=== PATIENT | female | born 1955 | race Caucasian/White ===

== ENCOUNTER 2023-12-12 15:12 | Inpatient (IN) | payer OTHER, SELFPAY ==
[2023-12-12] VITALS (10 sets, daily range): BP systolic 105–122; BP diastolic 55–90; BMI 27.5
[2023-12-12] MEDS: TORADOL 30 MG IV (11:31)
[2023-12-12] MEDS: ZOFRAN 4 MG IV (11:32)
[2023-12-12] MEDS: NSS 1000 IV (11:32)
[2023-12-12] MEDS: DILAUDID 0.5 MG IV ×4 (11:32→20:03)
[2023-12-12 11:48] LABS: % Basophils 0.2 % (0-2); % Eosinophils 0.2 % (0-6); % Immature Granulocytes 0.7 % (0-0.5); % Lymphocytes 3.6 % (20.5-51.1); % Monocytes 7.5 % (1.7-9.3); % Neutrophils 87.8 % (42.2-75.2); Absolute Immature Granulocytes 0.1 10^3/uL (0-0.05); Absolute Lymphocytes 0.5 10^3/uL (1.2-3.4); Absolute Neutrophils 11.6 10^3/uL (1.4-6.5); Hematocrit 33.9 % (37.0-47.0); Hemoglobin 11.6 g/dL (12.0-16.0); Mean Corp Hgb Conc. 34.2 g/dL (33.0-37.0); Mean Corpuscular Hgb 28.4 pg (27.0-31.0); Mean Corpuscular Volume 82.9 fL (81.0-99.0); Nucleated Red Blood Cells % 0 %; Platelet Count 239 10^3/uL (130-400); Red Blood Cell Count 4.09 10^6/uL (4.20-5.40); Red Cell Dist. Width 13.9 % (11.5-14.5); White Blood Cell Count 13.1 10^3/uL (4.8-10.8)
--- NOTE | 2023-12-12 11:50 | ED.GENMED ---
History of Present Illness
<Navid Rausch PA-C - Last Filed: 12/12/23 14:35>
General
Chief Complaint: Abdominal Pain
Source: patient
Time Seen by Provider: 12/12/23 11:01
History of Present Illness
History of Present Illness:
68-year-old female with past medical history of hypertension, gastric ulcer and hypothyroidism presenting to the emergency department for evaluation of lower abdominal pain that began last night in the left lower quadrant and overnight started to
move across her abdomen now diffuse lower abdomen accompanied with decreased p.o. intake today. Patient denied any nausea while in triage but is stating to me she has mild nausea but is otherwise denying any vomiting or diarrhea or urinary
symptoms. Denies any history of similar pain. Patient states she did not check her temperature at home but felt febrile. Surgical history was noncontributory. Patient did have a colonoscopy done earlier this year which showed 2 polyps and
scattered diverticulum. Patient otherwise has no other concerns.
Past History
<Navid Rausch PA-C - Last Filed: 12/12/23 14:35>
Past History
ED Past Medical History: HTN, Hypothyroidism, Other (Gastric ulcer) and Other (Patient has a history of pulmonary embolism years ago and she is on control)
ED Past Surgical History: None
Patient has exhibited threatening behavior?: No
PSI?: No
Social History
Tobacco: Non-smoker
Alcohol: None
Drug: None
Personal:
Living: with family
Employment: Employed
Review of Systems
<Navid Rausch PA-C - Last Filed: 12/12/23 14:35>
Review of Systems
All Other Systems: ROS reviewed and negative except as documented in HPI and ROS
Phy Exam
<Navid Rausch PA-C - Last Filed: 12/12/23 14:35>
Physical Exam
Physical Exam:
GENERAL: Alert , patient appears quite uncomfortable
EYE: clear conjunctiva b/l
HEAD: NCAT
ENT: o/p clr, mmm.
CARDIAC: Borderline tachycardic rate and rhythm, no murmur
LUNGS: Clear breath sounds bilaterally, no acute respiratory distress, no wheezes/rales/rhonchi
ABDOMEN: Firm and diffusely tender with rebound tenderness, pain is most pronounced within the left lower quadrant, no CVA tenderness
NEUROLOGICAL: Alert and oriented
SKIN: Warm and dry, skin intact.
MUSCULOSKELETAL: well perfused.
PSYCH: Normal and appropriate interaction.
Scores
<Navid Rausch PA-C - Last Filed: 12/12/23 14:35>
Heart Failure Risk
Heart Failure Risk Score: Not Applicable
Heart Score for Chest Pain Patients
STEMI patient?: Not applicable
Withdrawal Assessment of Alcohol
Withdrawal Assessment Completed?: Not applicable
Course
<Navid Rausch PA-C - Last Filed: 12/12/23 14:35>
Orders/Labs/Results
Orders:
Orders
12/12/23 11:21
0.9% Sodium Chloride 1000 ml [Nss] 1,000 ml IV BOLUS
HYDROmorphone [Dilaudid] 0.5 mg IV NOW STA
Ketorolac [Toradol] 30 mg IV NOW STA
Ondansetron Injectable [Zofran] 4 mg IV NOW STA
12/12/23 11:22
CT Abd/pelvis W Iv Cont Urgent
Comment:
Reason For Exam: diffuse lower abd pain, worse LLQ
12/12/23 11:34
Complete Blood Count/With Diff Urgent
Comprehensive Metabolic Panel Urgent
Lactic Acid Q4H
Comment: CANCEL 2nd LACTIC ACID IF 1st LACTIC ACID IS LESS THAN 2
Lipase Urgent
12/12/23 12:02
HYDROmorphone [Dilaudid] 0.5 mg .ROUTE .STK-MED ONE
HYDROmorphone [Dilaudid] 0.5 mg IV NOW STA
12/12/23 14:07
Urinalysis Reflex To Culture Urgent
Date Specimen was Collected: 12/12/23
Time Specimen was Collected: 14:06
Urine Microscopic Reflex Cult Urgent
Urine Culture Urgent
IRA Source: U
Specimen Description:
Obtained by: Random
Date Specimen was Collected: 12/12/23
Time Specimen was Collected: 14:06
12/12/23 14:32
HYDROmorphone [Dilaudid] 0.5 mg IV NOW STA
Piperacillin/Tazo 3.375 Gram [Zosyn] 3.375 gram in 50 ml IV NOW
Abnormal Lab Results
12/12/23 12/12/23
11:34 14:07
WBC 13.1 H 10^3/uL
(4.8-10.8)
RBC 4.09 L 10^6/uL
(4.20-5.40)
Hgb 11.6 L g/dL
(12.0-16.0)
Hct 33.9 L %
(37.0-47.0)
Abs Immat Gran (auto) 0.1 H 10^3/uL
(0-0.05)
Absolute Neuts (auto) 11.6 H 10^3/uL
(1.4-6.5)
Absolute Lymphs (auto) 0.5 L 10^3/uL
(1.2-3.4)
Absolute Monos (auto) 1.0 H 10^3/uL
(0.1-0.6)
Immature Gran % 0.7 H %
(0-0.5)
Neutrophils % 87.8 H %
(42.2-75.2)
Lymphocytes % 3.6 L %
(20.5-51.1)
BUN 20 H mg/dl
(7-17)
Glucose 114 H mg/dl
(70-99)
AST 37 H U/L
(14-36)
Leukocyte Esterase Rfl 2+ A
(Negative)
12/12/23 11:34
12/12/23 11:34
Vital Signs
Initial and Last Documented VS:
Initial Vital Signs
Temp Pulse Resp BP Pulse Ox
100.8 F H 110 18 122/90 99
12/12/23 10:45 12/12/23 10:45 12/12/23 10:45 12/12/23 10:45 12/12/23 10:45
Last Documented Vital Signs
Temp Pulse Resp BP Pulse Ox
99.8 F 84 18 117/64 97
12/12/23 13:34 12/12/23 13:34 12/12/23 13:34 12/12/23 13:00 12/12/23 13:45
<Kandi Mallory MD - Last Filed: 12/12/23 12:29>
Orders/Labs/Results
Orders:
Orders
12/12/23 11:21
0.9% Sodium Chloride 1000 ml [Nss] 1,000 ml IV BOLUS
HYDROmorphone [Dilaudid] 0.5 mg IV NOW STA
Ketorolac [Toradol] 30 mg IV NOW STA
Ondansetron Injectable [Zofran] 4 mg IV NOW STA
12/12/23 11:22
CT Abd/pelvis W Iv Cont Urgent
Comment:
Reason For Exam: diffuse lower abd pain, worse LLQ
12/12/23 11:34
Complete Blood Count/With Diff Urgent
Comprehensive Metabolic Panel Urgent
Lactic Acid Q4H
Comment: CANCEL 2nd LACTIC ACID IF 1st LACTIC ACID IS LESS THAN 2
Lipase Urgent
12/12/23 12:02
HYDROmorphone [Dilaudid] 0.5 mg .ROUTE .STK-MED ONE
HYDROmorphone [Dilaudid] 0.5 mg IV NOW STA
12/12/23 14:07
Urinalysis Reflex To Culture Urgent
Date Specimen was Collected: 12/12/23
Time Specimen was Collected: 14:06
Urine Microscopic Reflex Cult Urgent
Urine Culture Urgent
IRA Source: U
Specimen Description:
Obtained by: Random
Date Specimen was Collected: 12/12/23
Time Specimen was Collected: 14:06
12/12/23 14:32
HYDROmorphone [Dilaudid] 0.5 mg IV NOW STA
Piperacillin/Tazo 3.375 Gram [Zosyn] 3.375 gram in 50 ml IV NOW
Abnormal Lab Results
12/12/23 12/12/23
11:34 14:07
WBC 13.1 H 10^3/uL
(4.8-10.8)
RBC 4.09 L 10^6/uL
(4.20-5.40)
Hgb 11.6 L g/dL
(12.0-16.0)
Hct 33.9 L %
(37.0-47.0)
Abs Immat Gran (auto) 0.1 H 10^3/uL
(0-0.05)
Absolute Neuts (auto) 11.6 H 10^3/uL
(1.4-6.5)
Absolute Lymphs (auto) 0.5 L 10^3/uL
(1.2-3.4)
Absolute Monos (auto) 1.0 H 10^3/uL
(0.1-0.6)
Immature Gran % 0.7 H %
(0-0.5)
Neutrophils % 87.8 H %
(42.2-75.2)
Lymphocytes % 3.6 L %
(20.5-51.1)
BUN 20 H mg/dl
(7-17)
Glucose 114 H mg/dl
(70-99)
AST 37 H U/L
(14-36)
Leukocyte Esterase Rfl 2+ A
(Negative)
12/12/23 11:34
12/12/23 11:34
Vital Signs
Initial and Last Documented VS:
Initial Vital Signs
Temp Pulse Resp BP Pulse Ox
100.8 F H 110 18 122/90 99
12/12/23 10:45 12/12/23 10:45 12/12/23 10:45 12/12/23 10:45 12/12/23 10:45
Last Documented Vital Signs
Temp Pulse Resp BP Pulse Ox
99.8 F 84 18 117/64 97
12/12/23 13:34 12/12/23 13:34 12/12/23 13:34 12/12/23 13:00 12/12/23 13:45
<Navid Rausch PA-C - Last Filed: 12/12/23 14:35>
MDM/Problems Addressed
Differential Diagnosis Includes:
Diverticulitis/colitis, pancreatitis, appendicitis, I do not have concern for cholecystitis, urinary tract infection/renal/ureteral,
MDM/Problems Addressed:
68-year-old female presenting to the emergency department for evaluation of abdominal pain x 1 day. Patient started mildly in the left lower quadrant last night, overnight became more severe and across the entirety of the lower abdomen but pain is
still mainly pronounced within the left lower quadrant. Patient felt febrile at home but did not take her temperature nor anything for the fever. She is febrile here to 100.8 and tachycardic. Blood work including lactic acid ordered. Pain
control with Toradol and Dilaudid, Zofran for nausea. CT scan ordered. Reassessment following.
<Navid Rausch PA-C - Last Filed: 12/12/23 14:35>
*Radiology
Radiology exam reviewed: radiology read reviewed
*Pulse Oximetry
Patient hypoxic: no
*Critical Care Note
Total Time (30-74mins, 75-104mins- exclusive of procedures): Not Applicable
Data Reviewed
Review of Other/Old Records Reveals: Records and Testing
Source: patient
<Navid Rausch PA-C - Last Filed: 12/12/23 14:35>
Patient Management
Escalation/DeEscalation of care consider admission/obs:
Patient CT finding is noted for a large amount of feces throughout the colon suggesting possible constipation. I am less suspicious of this constipation as the cause of patient's presenting symptoms given she states she had a large bowel movement
this morning as well as this would not cause her fever and an elevated white blood cell count. Cholelithiasis was also noted however patient does not have pain in the right upper quadrant nor elevated liver function testing. Patient does have
diverticuli but CT is read as with acute evidence for diverticulitis but based off of patient's presentation, left lower quadrant abdominal pain, rebound tenderness I am most suspicious that diverticulitis is the most likely diagnosis. After
extensive conversation and answering questions with patient and her they ultimately decided that they would prefer being admitted over being discharged home which I think is reasonable given her fever combined with leukocytosis and continued
pain. Zosyn and a third dose of Dilaudid ordered for pain control. Hospitalist team is aware and accepts for continued evaluation and treat.
ED Attending Note
<Navid Rausch PA-C - Last Filed: 12/12/23 14:35>
-
Portions of this chart may have been created with voice recognition software.� Occasional wrong word or��sound alike� substitutions may have occurred due to the inherent limitations of voice recognition software.
<Kandi Mallory MD - Last Filed: 12/12/23 12:29>
ED Attending Note
Patient seen and examined by attending physician: Yes
ED Attending Note:
Patient is nontoxic and hemodynamically stable but has a fever and has point tenderness of left lower abdomen. I am suspicious for acute diverticulitis. Patient is awaiting CT. Heart sounds regular. lungs are clear.
Discharge Plan
Departure
Patient Disposition: Admit
Date of Disposition: 12/12/23
Time of Disposition: 14:31
Presentation/result/management discussed w/ accepting MD/DO: Hospitalist
Discharge Problem:
Diverticulitis
Prescriptions:
No Action
ascorbic acid (vitamin C) [Vitamin C] 500 MG tablet
500 mg PO DAILY
aspirin 325 MG tablet,delayed release (DR/EC)
325 mg PO DAILY
chromium 1 TAB tablet
1 tab PO DAILY
sertraline 50 MG tablet
50 mg PO HS
docosahexaenoic acid-epa 1 CAP capsule
1 cap PO DAILY
biotin 1 MG tablet
1 mg PO DAILY
sfrmmzff-yzrw-hmekct-hyalur ac 1 CAP capsule
1 cap PO DAILY
coenzyme P80-mvrpocs E 1 CAP capsule
1 cap PO DAILY
calcium carbonate-vit D3-min 1 EACH tablet,chewable
1 ea PO DAILY
multivitamin with folic acid [Tab-A-Jade] 1 TABLET tablet
1 tab PO DAILY
SELENIUM
1 tab PO DAILY
Vitamin D
1 tab PO DAILY
lidocaine 5 % adhesive patch,medicated
1 patch topical DAILY Qty: 10 0RF
Rx Instructions:
ON FOR 12 HOURS, OFF FOR 12 HOURS
lysine [L-Lysine] 1,000 MG tablet
1,000 mg PO DAILY
metoprolol succinate 25 mg tablet extended release 24 hr
25 mg PO DAILY 30 Days Qty: 30 0RF
meclizine 25 mg tablet
25 mg PO BID PRN (Reason: dizziness) 7 Days Qty: 14 0RF
omeprazole 40 mg capsule,delayed release(DR/EC)
40 mg PO DAILY Qty: 20 0RF
Referrals:
Evaristo Montez MD [Family Provider] -
Interventions
Interventions:
*Risk Screen - Suicide Last Done: 12/12/23 11:41
*General Assessment Last Done: 12/12/23 10:48
*Neglect/Abuse Screening Last Done: 12/12/23 11:41
ED- Fall Risk Assessment Last Done: 12/12/23 11:40
*ED COVID-19 Vaccine History Last Done: 12/12/23 10:48
DH-Jqyseu-Jaxjgpwzbr Assessment Last Done: 12/12/23 11:37
Discharge Date and Time
Print Language: MACANESE
[2023-12-12 12:06] LABS: ALT (SGPT) 33 U/L (0-35); AST (SGOT) 37 U/L (14-36); Albumin 4.1 g/dl (3.5-5.0); Alkaline Phosphatase 76 U/L (38-126); Blood Urea Nitrogen 20 mg/dl (7-17); Calcium 9.5 mg/dl (8.4-10.2); Carbon Dioxide 22 mmol/L (22-30); Chloride 104 mmol/L (98-107); Estimated Creatinine Clearance 62 ml/min; Glucose 114 mg/dl (70-99); Lipase 79 U/L (23-300); Potassium 4.1 mmol/L (3.5-5.1); Sodium 136 mmol/L (135-145); Total Bilirubin 0.6 mg/dl (0.2-1.3); Total Protein 6.8 g/dl (6.3-8.2); eGFR > 60.00
[2023-12-12 12:09] LABS: Lactic Acid 1.9 mmol/L (0.7-2.0)
[2023-12-12 14:21] LABS: Urine Albumin Negative (Neg - Trace); Urine Bilirubin Negative (Negative); Urine Character Clear (Clear); Urine Color Straw; Urine Glucose Negative (Negative); Urine Ketone Negative (Negative); Urine Leukocyte 2+ (Negative); Urine Nitrite Negative (Negative); Urine Occult Blood Negative (Negative); Urine Specific Gravity 1.005 (<1.030); Urine Urobilinogen Negative (Neg - 1+)
[2023-12-12 14:35] LABS: Urine Red Blood Cell 0-2 /HPF (0-2)
--- NOTE | 2023-12-12 14:35 | HPS.HSE ---
Family Physician
-
Family Physician: Evaristo Montez
Chief Complaint
-
Abdominal pain
History of Present Illness
68 y/o F with PMHx:
Essential hypertension
Peptic ulcer disease
Hypothyroidism
who p/w CC abd pain. The middle of the night the patient began having sharp left lower quadrant abdominal pain that was radiating to the right side. She had no nausea or vomiting. She had a normal bowel movement yesterday evening without melena
or hematochezia. She denies any fevers at home but also did not take her temperature. Denies chest pain, shortness of breath,, headache, neck stiffness, rash, dysuria, focal neurological deficit.
Medical History
Past Medical History
Past Medical History: Reports Other (as per HPI)
Past Surgical History: Reports Other (N/A)
Social History
Tobacco: Non-smoker
Alcohol: None
Drug: None
Family History
Family History: Not pertinent
Allergies / Home Medications
Allergies reflects when Allergies were last updated in [facility].
Home Medications with original date entered in [facility]
Allergy/Medication List:
Allergies
Allergy/AdvReac Type Severity Reaction Status Date / Time
erythromycin base Allergy burning Verified 12/12/23 10:50
stomach
latex [Latex] Allergy Rash Verified 12/12/23 10:50
Home Medications
SELENIUM 1 tab PO DAILY 07/23/10
ascorbic acid (vitamin C) 500 mg tablet (Vitamin C) 500 mg PO DAILY 07/23/10
aspirin 325 mg tablet,delayed release 325 mg PO HS 07/23/10
biotin 1 mg tablet 1 mg PO DAILY 07/23/10
docosahexaenoic acid (dha)-epa 120 mg-180 mg capsule 1 cap PO DAILY 07/23/10
multivitamin with folic acid 400 mcg tablet (Tab-A-Jade) 1 tab PO DAILY 07/23/10
sertraline 50 mg tablet 50 mg PO HS 07/23/10
omeprazole 40 mg capsule,delayed release 40 mg PO DAILY #20 caps 08/04/22
apple cider vinegar 300 mg tablet 300 mg PO DAILY 12/12/23
calcium carbonate (Calcium 600) 600 mg PO DAILY 12/12/23
coenzyme Q10 100 mg capsule (CoQ-10) 100 mg PO DAILY 12/12/23
famotidine 40 mg tablet 40 mg PO DAILY 12/12/23
garlic 200 mg tablet 200 mg PO DAILY 12/12/23
ibuprofen 200 mg tablet (Advil) 400 mg PO Q6HPRN PRN mild pain 12/12/23
inulin 2 gram chewable tablet (Fiber Gummies) 4 g PO DAILY 12/12/23
levothyroxine 25 mcg tablet 25 mcg PO HS 12/12/23
omega 1-ajn-dbq-fish oil 1,000 mg (120 mg-180 mg) capsule (Fish Oil) 1 cap PO DAILY 12/12/23
Review of Systems
-
History Source: Patient
A 12 point ROS was completed and negative except as noted: Yes
Physical Exam
Vital Signs
Vital Signs
Temp Pulse Resp BP Pulse Ox
99.8 F 84 18 117/64 97
12/12/23 13:34 12/12/23 13:34 12/12/23 13:34 12/12/23 13:00 12/12/23 13:45
Physical Exam
General: Other (.)
Laboratory Results
-
12/12/23 11:34
12/12/23 11:34
Laboratory Results
Lactic Acid Cancelled 12/12/23 15:30
Total Bilirubin 0.6 mg/dl (0.2-1.3) 12/12/23 11:34
AST 37 U/L (14-36) H 12/12/23 11:34
ALT 33 U/L (0-35) 12/12/23 11:34
Alkaline Phosphatase 76 U/L (38-126) 12/12/23 11:34
Lipase 79 U/L (23-300) 12/12/23 11:34
Impression/Plan
-
Gen: NAD, AAOx3.
Eyes: EOMI, PERRLA, no scleral icterus.
Neck: supple.
CV: RRR, +S1/S2, no m/r/g.
Resp: CTAB, no rales, wheezes, or rhonchi.
Abd: +BS, soft, ND, tenderness to palpation in the left lower quadrant and right lower quadrant with the weight of the stethoscope alone
Skin: No rashes.
Neuro: CN 2-12 intact, non-focal.
Psych: Normal mood and affect.
CT A/P: Large amount of feces throughout the colon suggesting possible constipation. Small amount of free fluid in the pelvis. Cholelithiasis. Evaluation for bowel pathology is limited by the lack of enteric contrast
Diverticuli are present in the colon with no CT evidence of diverticulitis. There are no areas of pericolonic inflammatory stranding. If there is clinical suspicion for bowel pathology, the study could be repeated with enteric contrast and 4 hour
delay.
Fever and abd pain:
-CT A/P above and without evidence of diverticulitis but presentation consistent with acute diverticulitis
-check CT A/P with PO contrast
-Sepsis, POA, due to likely diverticulitis
-recheck CT A/P with PO contrast
-cont IVFs
-cont with Toradol/Dilaudid for pain control
-cont Zosyn
Other problems:
Essential hypertension: cont BB
Peptic ulcer disease
Hypothyroidism
FULL/Lovenox
[2023-12-12] MEDS: ZOSYN 50 IV (14:48)
[2023-12-12] MEDS: OMNIPAQUE 50 ML PO (17:43)
[2023-12-12] MEDS: PROTONIX 40 MG PO (17:49)
[2023-12-12] MEDS: D5LR 1000 IV (17:49)
[2023-12-12] MEDS: PEPCID 40 MG PO (17:49)
[2023-12-12] MEDS: LOVENOX 40 MG SC (17:50)
[2023-12-12] MEDS: TORADOL 10 MG IV (17:51)
--- NOTE | 2023-12-12 18:26 | PTCARENOTE ---
Received patient from ED via stretcher. Ambulated to bed. Assessed and oriented to room. Call saldana in close reach.
[2023-12-12] MEDS: ASPIRIN ENTERIC COATED 325 MG PO (20:54)
[2023-12-12] MEDS: SYNTHROID 25 MCG PO (20:54)
[2023-12-12] MEDS: ZOLOFT 50 MG PO (20:55)
[2023-12-13] VITALS (11 sets, daily range): BP systolic 20–136; BP diastolic 55–71; PULSE 67; O2SAT 96
[2023-12-13] MEDS: ZOSYN 50 IV ×2 (00:07→06:02)
[2023-12-13] MEDS: DILAUDID 0.5 MG IV ×3 (00:23→13:27)
--- NOTE | 2023-12-13 01:04 | CON.CRS ---
Consultation
-
Reason for Consultation: concern for perforated colon
Medical History
-
Chief Complaint: abdominal pain
History of Present Illness:
15 to the hospital for new onset severe abdominal pain. Was found to have leukocytosis with a white blood cell count of 13.1 as well as a low-grade fever a little bit above 100 �F. Denies nausea or vomiting. Describes the pain as 8 out of 10.
Has been moving her bowels and her last BM was within the last 24 hours. Of note her normal bowel function is every 2 to 3 days. She does not describe her self is constipated. She does not take narcotics. She did undergo a colonoscopy by me
earlier in the year which confirmed diverticular disease. She has a history of colon polyps. She also interestingly has a history of peptic ulcer disease which has been managed medically. Her most recent EGD in August 2022 showed some gastritis
and a healed ulcer. Patient also has known gallstones. She did undergo 2 CT scans today 1 with out oral contrast on the second with. The initial 1 was read as unremarkable however in retrospect appears to have shown some free air. The second was
read as free air consistent with perforated viscus 'the exact location of perforation is difficult to discern. Given that the free air is located mostly in the upper abdomen, perforated peptic ulcer would be a primary consideration. Perforated
diverticulitis is an alternative consideration, but no clear evidence for acute diverticulitis on this exam '. Initially Dr. Rod Hernandez of general surgery was asked to evaluate the patient. On his own assessment of the CTs he concluded that
this is more likely to be a colonic issue and asked me to see the patient instead. On my own review of the CAT scan, there is certainly a decent amount of stool in the colon. There are flecks of free air mostly in the upper abdomen. There is no
obvious inflammation in the colon or abscess although I do wonder if the proximal sigmoid has a bit of fat stranding.
On discussion with the patient she has never had an attack of diverticulitis in the past. She has never had pain like this in her life. She denies any bleeding. She is anxious about her circumstance.
Past Medical History
Past Medical History: GERD (h/o PUD), HTN, Hypothyroidism and Other
Social History
Tobacco: Non-Smoker
Alcohol: None
Personal:
Living: With Family
Family History
Family History: Reviewed & Not Pertinent
Allergies / Home Medications
Allergy/AdvReac Type Severity Reaction Status Date / Time
erythromycin base Allergy burning Verified 12/12/23 10:50
stomach
latex [Latex] Allergy Rash Verified 12/12/23 10:50
�Medication �Instructions �Recorded �Confirmed �Type
SELENIUM 1 tab PO DAILY 07/23/10 12/12/23 History
ascorbic acid (vitamin C) 500 mg 500 mg PO DAILY 07/23/10 12/12/23 History
tablet (Vitamin C)
aspirin 325 mg tablet,delayed 325 mg PO HS 07/23/10 12/12/23 History
release
biotin 1 mg tablet 1 mg PO DAILY 07/23/10 12/12/23 History
docosahexaenoic acid (dha)-epa 120 1 cap PO DAILY 07/23/10 12/12/23 History
mg-180 mg capsule
multivitamin with folic acid 400 1 tab PO DAILY 07/23/10 12/12/23 History
mcg tablet (Tab-A-Jade)
sertraline 50 mg tablet 50 mg PO HS 07/23/10 12/12/23 History
omeprazole 40 mg capsule,delayed 40 mg PO DAILY #20 caps 08/04/22 12/12/23 Rx
release
apple cider vinegar 300 mg tablet 300 mg PO DAILY 12/12/23 12/12/23 History
calcium carbonate (Calcium 600) 600 mg PO DAILY 12/12/23 12/12/23 History
coenzyme Q10 100 mg capsule 100 mg PO DAILY 12/12/23 12/12/23 History
(CoQ-10)
famotidine 40 mg tablet 40 mg PO DAILY 12/12/23 12/12/23 History
garlic 200 mg tablet 200 mg PO DAILY 12/12/23 12/12/23 History
ibuprofen 200 mg tablet (Advil) 400 mg PO Q6HPRN PRN mild pain 12/12/23 12/12/23 History
inulin 2 gram chewable tablet 4 g PO DAILY 12/12/23 12/12/23 History
(Fiber Gummies)
levothyroxine 25 mcg tablet 25 mcg PO HS 12/12/23 12/12/23 History
omega 2-rez-lnd-fish oil 1,000 mg 1 cap PO DAILY 12/12/23 12/12/23 History
(120 mg-180 mg) capsule (Fish Oil)
Review of Systems
-
A 10 point review of systems was completed, and was negative except as per HPI.
Physical Exam
Vital Signs
Temp 99.7 F 12/12/23 23:41
Pulse 78 12/12/23 23:41
Resp Rate 16 12/12/23 23:41
Blood pressure 114/67 12/12/23 23:41
SaO2 96 12/12/23 23:41
12/11/23 12/12/23 12/13/23
06:59 06:59 06:59
Actual Weight 77.167 kg
Body Mass Index (BMI) 27.5
Lab Results / Allergies
WBC 13.1 10^3/uL (4.8-10.8) H 12/12/23 11:34
Hgb 11.6 g/dL (12.0-16.0) L 12/12/23 11:34
Hct 33.9 % (37.0-47.0) L 12/12/23 11:34
Plt Count 239 10^3/uL (130-400) 12/12/23 11:34
Abs Immat Gran (auto) 0.1 10^3/uL (0-0.05) H 12/12/23 11:34
Neutrophils % 87.8 % (42.2-75.2) H 12/12/23 11:34
Allergy/AdvReac Type Severity Reaction Status Date / Time
erythromycin base Allergy burning Verified 12/12/23 10:50
stomach
latex [Latex] Allergy Rash Verified 12/12/23 10:50
Physical Exam
General: Well Developed
Respiratory: Clear
Cardiac: S1/S2
GI: Tender (especially in lower quadrants) and Other (some guarding )
Skin: Warm and Dry
Neuro: AO x 3
Psych: Other (anxious)
Data Reviewed
-
CT Scan: Image Personally Visualized and interpreted, Report Reviewed by me and Discussed with Patient
Labs: Labs Reviewed by me and Discussed with Patient
Assessment / Plan
-
58-year-old female with perforated viscus of unclear etiology. Given history of diverticulosis and lower abdominal discomfort, certainly diverticular perforation/diverticulitis is possible. Perforated peptic ulcer is also possible given her
history especially. She is quite tender on exam. I discussed duration with the patient in detail. I recommended a trip to the OR for exploratory laparotomy with possible partial bowel resection and possible stoma creation. If upper GI findings
are found such as perforated ulcer, will likely have general surgery scrub in to address. I discussed with her the risks and benefits of the operation from my perspective. Risks I discussed with her include but are not limited to bleeding,
infection, ureteral injury, bowel or solid organ injury, hernia formation, recurrence of diverticulitis (if diverticulitis is the issue), potential need for further surgery, urinary or septal dysfunction, missed source of perforation and the
possibility of a negative ex lap, and anesthetic risks. The patient understood and agreed to proceed.
--- NOTE | 2023-12-13 04:12 | W.IMMPOSTOP ---
Addendum entered and electronically signed by Evaristo Youssef MD 12/13/23 12:03:
Correction: no rectopexy was performed.
Original Note:
Surgical Immed Post Op Note
-
Primary Surgeon: Karlie Youssef MD
Assisting Surgeon: none
Pre-op Diagnosis: perforated viscus
Post-op Diagnosis: perforated sigmoid diverticulitis
Procedure Performed: 1) exploratory laparotomy 2) Nori's procedure (sigmoidectomy with rectopexy) 3) abdominal washout
Anesthesia Type: general plus TAP block
Specimen / Cultures: 1) abdominal fluid cultures 2) sigmoid colon with stitch marking perforation
Estimated Blood Loss: 50 cc
Complications: no immediate
Operative Findings: sigmoid diverticulitis with perforation and 4 quadrant mucopurulent exudate 2) colon filled with stool
#19 Warren in pelvis.
NGT in stomach (confirmed in OR).
Sanon in bladder.
Sending to med surg.
[2023-12-13] MEDS: TORADOL 15 MG IV ×4 (04:32→21:49)
[2023-12-13] MEDS: D5LR 1000 IV ×3 (04:48→20:02)
[2023-12-13 07:40] LABS: Hematocrit 33.8 % (37.0-47.0); Hemoglobin 11.3 g/dL (12.0-16.0); Mean Corp Hgb Conc. 33.4 g/dL (33.0-37.0); Mean Corpuscular Hgb 28.8 pg (27.0-31.0); Mean Corpuscular Volume 86.2 fL (81.0-99.0); Mean Platelet Volume 10.7 fL (7.4-10.4); Platelet Count 224 10^3/uL (130-400); Red Blood Cell Count 3.92 10^6/uL (4.20-5.40); Red Cell Dist. Width 14.2 % (11.5-14.5); White Blood Cell Count 10.6 10^3/uL (4.8-10.8)
[2023-12-13 08:06] LABS: Blood Urea Nitrogen 13 mg/dl (7-17); Calcium 8.5 mg/dl (8.4-10.2); Carbon Dioxide 21 mmol/L (22-30); Chloride 103 mmol/L (98-107); Estimated Creatinine Clearance 80 ml/min; Glucose 167 mg/dl (70-99); Magnesium 2.1 mg/dl (1.6-2.3); Potassium 4.3 mmol/L (3.5-5.1); Sodium 133 mmol/L (135-145); eGFR > 60.00
--- NOTE | 2023-12-13 08:27 | W.PN.HOSP.TC ---
Addendum entered and electronically signed by Jacob Hu MD 12/13/23 09:46:
I saw and evaluated the patient. I reviewed the resident�s note and agree with findings and plan as documented in the resident�s note.
Patient complains of abdominal discomfort.
Gen: NAD, AAOx3.
Eyes: EOMI, PERRLA, no scleral icterus.
Neck: supple.
CV: remains RRR, +S1/S2, no m/r/g.
Resp: remains CTAB, no rales, wheezes, or rhonchi.
Abd: hypoactive BS heard on the right side, soft, ND, NT to very light palpation, ostomy without output
Skin: No rashes.
Neuro: CN 2-12 intact, non-focal.
Psych: Normal mood and affect.
Sepsis, POA, due to perforated viscus:
-CT A/P with PO contrast (done after initial CT A/P with IV contrast): Scattered pneumoperitoneum throughout the abdomen indicating a perforated viscus. The exact location of perforation is difficult to discern. Given that the free air is mostly
located in the upper abdomen, a perforated peptic ulcer would be the primary consideration. Perforated diverticulitis is an alternative consideration, but no clear evidence for acute diverticulitis on this exam.
-taken to OR 726/24AM for exploratory laparotomy, Nori's procedure (sigmoidectomy with rectopexy), abdominal washout
-leukocytosis has resolved
-cont IV Zosyn, c/s ID
-NGT remains in place
-CRS following
-cont IVFs
-pain control with Toradol/dilaudid
Essential hypertension: BP Stable/acceptable at this time
Peptic ulcer disease: Cont IV PPI
Hypothyroidism: OK to be off synthroid for 3 days
Total time spent on today's encounter was 50 minutes which included time spent in counseling the patient/family regarding diagnosis and treatment plan as listed above, goals of care, and symptom management. Case was discussed with nursing staff,
specialists, and care coordinators/case management. All labs and imaging personally reviewed by me. Remainder the time spent in detailed review of previous records, lab data, imaging, and other medical provider documentation.
Original Note:
Today's Communication/Plan
-
Pain management
Advance diet as tolerated per surgery
Monitor for postop complications
Assessment / Plan
Assessment / Plan
Impression:
68-year-old female who presents with perforated sigmoid diverticulitis status post sigmoidectomy with rectopexy and abdominal washout
Plan:
#Sigmoid diverticulitis, with perforation
-No previous history of diverticulosis, per patient
-Patient presented with exquisite rapid onset abdominal pain and tenderness on exam
-Status post exploratory laparotomy, sigmoidectomy with rectopexy and ostomy creation as well as abdominal washout.
-She was found to have mucopurulent exudate in all 4 quadrants of the abdomen, was washed out by surgery
-Patient started on Zosyn
-ID consult pending
-Patient currently n.p.o., will allow surgery to advance diet
-Patient states pain is 8 out of 10, she has as needed Dilaudid and ketorolac IV ordered, informed patient that she can ask nurse for pain meds
-Will recheck in afternoon if pain is adequately controlled
#Sepsis
-Patient was febrile and leukocytosis on admission
-Patient currently afebrile and with normal white count on 12/13/2023
-Source perforated abdominal viscus
-Continue Zosyn
-Infectious disease consult pending
#Peptic ulcer disease
-Continue home omeprazole and famotidine
#Essential hypertension
-Continue home beta-ave
#Hypothyroidism
-Continue home levothyroxine
Anticipated Discharge: > 48 hours
Subjective/Interval History
-
Date of Service: December 13, 2023
No acute events overnight
Patient reports 8 out of 10 abdominal pain in the right lower left lower quadrant
Objective Data
-
Labs:
Laboratory Results
12/13/23
05:49
WBC 10.6
Hgb 11.3 L
Hct 33.8 L
Plt Count 224
Sodium 133 L
Potassium 4.3
Chloride 103
Carbon Dioxide 21 L
BUN 13
Creatinine 0.7
Glucose 167 H
Calcium 8.5
Vital Signs:
Vital Signs
Temp Pulse Resp BP Pulse Ox
99.1 F 82 17 123/71 98
12/13/23 07:10 12/13/23 07:10 12/13/23 07:10 12/13/23 07:10 12/13/23 07:10
I&O
12/12/23 12/13/23 12/14/23
06:59 06:59 06:59
Intake Total 430 / 430
Output Total 400 / 400
Balance 30 / 30
Review of Systems
-
History Source: Patient
Constitutional: Reports No Symptoms
Respiratory: Reports No Symptoms
Cardiac: Reports No Symptoms
Abdomen/GI: Reports Abdominal Pain (8 out of 10 right lower and left lower quadrant), Pain (8 out of 10) and Other (Guarding on exam, patient states much less intensity than previously); Denies Nausea or Vomiting
Genitourinary: Reports No Symptoms
Physical Exam
-
General: Well Nourished and Pain
Respiratory: Clear to Auscultation
Cardiac: Regular Rhythm and S1/S2
GI: Soft, Tender (Tender to light palpation right lower and left lower quadrants) and Ostomy
Musculoskeletal: No Edema
Skin: Warm and Dry
Neuro: Awake, Alert, Oriented and AO x 3
Psych: Calm and Intact Judgement/Insight
Data Reviewed
-
CT Scan: Report Reviewed by me and Discussed with Physician
Labs: Labs Reviewed by me and Discussed with Physician
[2023-12-13] MEDS: PROTONIX IV 40 MG IV (08:43)
[2023-12-13] MEDS: NSS (PRESERVATIVE FREE) 10 ML IV (08:43)
[2023-12-13] MEDS: OFIRMEV 100 IV ×3 (08:43→20:01)
[2023-12-13 08:48] LABS: Hepatitis C Antibody Negative (Negative)
--- NOTE | 2023-12-13 10:04 | W.PN.CRS1 ---
Today's Communication / Plan
-
CCM
Ok for lvx
Assessment/Plan
-
68-year-old female with PMH of PUD, gallstones, HTN, HLD who presented with 1 day of acute abdominal pain, found to have pneumoperitoneum on CT, concerning for perforated viscus, unclear etiology, but possibly colonic
POD 1 ex lap, Green's with rectopexy for perforated diverticulitis
AFVSS
WBC 10.6, Hb 11.3 from 11.6
� Continue n.p.o. with NGT and IVF; hold p.o. meds, okay for ice chips and swabs
� Pain control with Tylenol, Toradol, Dilaudid as needed
� OK for DVT ppx with lvx
�OOB, encourage IS
� Continue Zosyn
� Appreciate hospitalist
Subjective Data
Subjective Data
Date of Service: December 13, 2023
No events since surgery
Not well-controlled
Denies nausea/vomiting. Currently NPO with NGT.
-ostomy function +penn
Objective Data
-
Vital Signs
Temp Pulse Resp BP Pulse Ox
99.1 F 82 17 123/71 98
12/13/23 07:10 12/13/23 07:10 12/13/23 07:10 12/13/23 07:10 12/13/23 08:00
Intake & Output
12/12/23 12/13/23 12/14/23
06:59 06:59 06:59
Intake Total 430 / 430
Output Total 400 / 400
Balance 30 / 30
Intake:
IV fluids (Total) 350 / 350
Normosol 100 / 100
IV piggybacks 50 / 50
Amount instilled into GI Tube ( 30 / 30
Total)
[place] Sump 30 / 30
Output:
Drain Output (Total) 120 / 120
Right Lower Abdomen Sergey- 120 / 120
Curry
Gastrointestinal tube output (
Total)
[place] Sump
Urine, [place] 250 / 250
Lab Results
12/13/23 05:49
12/13/23 05:49
Physical Exam
-
General: No Acute Distress and AOx3
HEENT: Grossly Normal
Abdomen: Soft, Non Distended and Tender (Appropriately tender near incisions; ostomy pink, no function)
Skin: Warm and Dry
Wound: Dressing in Place and No Skin Erythema
--- NOTE | 2023-12-13 11:00 | WOUNDNOTE ---
[facility] RN note: Patient s/p colostomy. Appliance intact. Stoma pink and budded. Patient given colostomy supplies ([place]ett wafer # [id number], [place] seals and Garnett pouch #[id number]) and colostomy teaching folder. Patient signed [facility] secure ostomy
stater kit authorization fax. Instructed patient how to open and close pouch, cut wafer and snap on wafer. Patient stated her can be called for any ostomy teaching sessions planned. Appliance change with teaching planned Saturday or Saturday.
[2023-12-13] MEDS: UNASYN IV ×3 (11:27→23:46)
[2023-12-13] MEDS: CHLORASEPTIC/SORE THROAT SPRAY 1 SPRAY PO ×2 (13:27→16:24)
--- NOTE | 2023-12-13 13:45 | WOUNDNOTE ---
[facility] RN Note: Faxed patient signed [place] ostomy secure starter kit request to [facility].
--- NOTE | 2023-12-13 15:38 | CM ---
Initial assessment completed with patient who lives with her in a 2 story home with basement, B/B on 2nd with 1/2 bath on 1st, 2 steps to enter, no DME or in-home services. [employer] was independent and drove. No history of psychiatric
hospitalizations. Pharmacy is [facility] on [address] in [place] and PCP is Dr. Evaristo Montez. Anticipate home with no needs.
--- NOTE | 2023-12-13 15:52 | CON.ID ---
Consultation
-
Date/Time Consultation Requested: 12/13/23 08:10
Date/Time Consultation Performed: 12/13/23 15:52
Requesting Provider: Dr Tinajero
Performing Provider: Dr Mejía
Reason for Consultation: Sigmoid diverticulitis with perforation
Chief Complaint / Past History
Chief Complaint
acute abdominal pain
History of Present Illness
Ms Powers is a 68 year old female without history of diverticulitis who presented here yesterday for acute abdominal pain, started LLQ then generalized abruptly. Also Tmax 100.0 at home. She does not normally have constipation or take carcotics.
She was known to have diverticular disease on a recent colonoscopy and PUD.
Since arrival here she was initially febrile to 100.8, bp stable, wbc 13 on arrival now 10, hgb 11.6, plt 239, L shift was noted, cr 0.7, CT without contrast read as limited, diverticulosis, recommended repeat with oral contrast which was done
showing pneumoperitoneum without definite source, no clear diverticulitis, she was taken to the OR same day and underwent ex lap, hartmanns, washout, intraabdominal cultures obtained showing few wbc nad no organisms. She was on zosyn and I have
adjusted that to unasyn. ID is consulted for assistance with management.
Past History
Additional Past Medical History:
Essential hypertension
Peptic ulcer disease
Hypothyroidism
Past Surgical History: None
Allergy History:
erythromycin base Allergy (Verified 12/12/23 10:50)
burning stomach
latex [Latex] Allergy (Verified 12/12/23 10:50)
Rash
Medications Reviewed: Yes
Social History
Tobacco: Non-Smoker
Alcohol: None
Drug: None
Family History
Family History: Not Pertinent
Review of Systems
Review of Systems
General: Fever
All systems: All other systems were reviewed and were negative
Vital Signs
Temp Pulse Resp BP Pulse Ox
100.1 F 65 17 113/61 98
12/13/23 11:25 12/13/23 11:25 12/13/23 11:25 12/13/23 11:25 12/13/23 11:25
Physical Exam
Physical Exam
Constitutional: No Acute Distress
Cardiovascular: Regular Rate and S1/S2; Negative Murmur or Rub
Pulmonary: Clear and Symmetric; Negative Wheezes, Rales or Rhonchi
Gastrointestinal: Soft, Non Tender, Non Distended and Normal Bowel Sounds
Skin: Warm and Dry; Negative Rash or Jaundice
Wound: Other (stoma pink)
Lab / Diagnostic Study Results
12/13/23 05:49
12/13/23 05:49
Abs Immat Gran (auto) 0.1 10^3/uL (0-0.05) H 12/12/23 11:34
Absolute Neuts (auto) 11.6 10^3/uL (1.4-6.5) H 12/12/23 11:34
Absolute Lymphs (auto) 0.5 10^3/uL (1.2-3.4) L 12/12/23 11:34
Absolute Monos (auto) 1.0 10^3/uL (0.1-0.6) H 12/12/23 11:34
Absolute Basos (auto) 0.0 10^3/uL (0-0.2) 12/12/23 11:34
Immature Gran % 0.7 % (0-0.5) H 12/12/23 11:34
Neutrophils % 87.8 % (42.2-75.2) H 12/12/23 11:34
Lymphocytes % 3.6 % (20.5-51.1) L 12/12/23 11:34
Monocytes % 7.5 % (1.7-9.3) 12/12/23 11:34
Eosinophils % 0.2 % (0-6) 12/12/23 11:34
Basophils % 0.2 % (0-2) 12/12/23 11:34
Lactic Acid Cancelled 12/12/23 15:30
Ur Squamous Epith Cells 3-5 /LPF (Few) 12/12/23 14:07
Microbiology Results
Micro:
12/13/23 02:33 Wound Culture - Pending
Abdomen Gram Stain - Preliminary
12/12/23 14:07 Urine Culture - Final
Urine
12/13/23 02:33 Anaerobic Culture - Pending
Colon
Assessment / Plan
Perforated Diverticulitis s/p Hartmanns
- appreciate OR cultures, no organisms on the gram stain, anticipate polymicrobial growth
- start unasyn, patient not known to be colonized with ESBLs, stop zosyn - will likely plan 5-7 day course
- check qtc
- follow clinically
[2023-12-13] MEDS: DILAUDID 1 MG IV ×2 (16:52→21:49)
[2023-12-13] MEDS: LOVENOX 40 MG SC (17:00)
[2023-12-14] MEDS: DILAUDID 1 MG IV ×6 (01:55→23:16)
[2023-12-14] MEDS: OFIRMEV 100 IV (01:57)
[2023-12-14 03:14] VITALS: BP 127/70
[2023-12-14] MEDS: D5LR 1000 IV ×3 (05:16→23:16)
[2023-12-14] MEDS: UNASYN IV ×4 (05:16→23:16)
[2023-12-14] MEDS: TORADOL 15 MG IV ×4 (05:18→22:47)
[2023-12-14 07:24] LABS: Hematocrit 29.8 % (37.0-47.0); Hemoglobin 9.8 g/dL (12.0-16.0); Mean Corp Hgb Conc. 32.9 g/dL (33.0-37.0); Mean Corpuscular Hgb 28.7 pg (27.0-31.0); Mean Corpuscular Volume 87.1 fL (81.0-99.0); Mean Platelet Volume 10.6 fL (7.4-10.4); Platelet Count 220 10^3/uL (130-400); Red Blood Cell Count 3.42 10^6/uL (4.20-5.40); Red Cell Dist. Width 14.4 % (11.5-14.5); White Blood Cell Count 7.6 10^3/uL (4.8-10.8)
[2023-12-14 07:44] LABS: Blood Urea Nitrogen 9 mg/dl (7-17); Calcium 8.6 mg/dl (8.4-10.2); Carbon Dioxide 26 mmol/L (22-30); Chloride 103 mmol/L (98-107); Estimated Creatinine Clearance 70 ml/min; Glucose 95 mg/dl (70-99); Potassium 3.9 mmol/L (3.5-5.1); Sodium 135 mmol/L (135-145); eGFR > 60.00
--- NOTE | 2023-12-14 07:46 | W.PN.HOSP.TC ---
Today's Communication/Plan
-
see bold
Assessment / Plan
Assessment / Plan
Gen: NAD, AAOx3.
Eyes: EOMI, PERRLA, no scleral icterus.
Neck: supple.
CV: RRR, +S1/S2, no m/r/g.
Resp: CTAB, no rales, wheezes, or rhonchi.
Abd: +BS, soft, tenderness to light palpation, ND
Skin: No rashes.
Neuro: CN 2-12 intact, non-focal.
Psych: Normal mood and affect.
Sepsis, POA, due to perforated viscus:
-CT A/P with PO contrast (done after initial CT A/P with IV contrast): Scattered pneumoperitoneum throughout the abdomen indicating a perforated viscus. The exact location of perforation is difficult to discern. Given that the free air is mostly
located in the upper abdomen, a perforated peptic ulcer would be the primary consideration. Perforated diverticulitis is an alternative consideration, but no clear evidence for acute diverticulitis on this exam.
-taken to OR 726/24AM for exploratory laparotomy, Nori's procedure (sigmoidectomy with rectopexy), abdominal washout
-leukocytosis has resolved
-cont IV Unasyn as per ID
-NGT remains in place
-CRS following
-cont IVFs
-pain control with Toradol/dilaudid
Other problems:
Essential hypertension: BP Stable/acceptable at this time
Peptic ulcer disease: Cont IV PPI
Hypothyroidism: OK to be off synthroid for 3 days total prior to starting IV
FULL/Lovenox
Anticipated Discharge: > 48 hours
Subjective/Interval History
-
Date of Service: December 14, 2023
No new complaints.
Objective Data
-
Labs:
Laboratory Results
12/14/23
05:52
WBC 7.6
Hgb 9.8 L
Hct 29.8 L
Plt Count 220
Sodium 135
Potassium 3.9
Chloride 103
Carbon Dioxide 26
BUN 9
Creatinine 0.8
Glucose 95
Calcium 8.6
Vital Signs:
Vital Signs
Temp Pulse Resp BP Pulse Ox
99.4 F 68 16 127/70 92
12/14/23 03:14 12/14/23 03:14 12/14/23 03:14 12/14/23 03:14 12/14/23 03:14
I&O
12/13/23 12/14/23 12/15/23
06:59 06:59 06:59
Intake Total 430 / 430 90 / 90
Output Total 400 / 400 2064 / 2064
Balance -1974 /
[2023-12-14 07:59] VITALS: BP 125/74
[2023-12-14] MEDS: PROTONIX IV 40 MG IV (08:04)
[2023-12-14] MEDS: NSS (PRESERVATIVE FREE) 10 ML IV (08:05)
[2023-12-14] MEDS: CHLORASEPTIC/SORE THROAT SPRAY 1 SPRAY PO ×3 (08:07→17:22)
[2023-12-14 10:33] VITALS: BMI 27.5
--- NOTE | 2023-12-14 10:58 | W.PN.CRS1 ---
Addendum entered and electronically signed by Mariano Mulligan MD 12/14/23 13:55:
Patient seen and examined. Agree with assessment plan as documented below.
Clinically stable. Symptomatic improvement. Abdomen benign. Awaiting return of bowel function.
Original Note:
Today's Communication / Plan
-
await bowel function
continue antibiotics
d/c fili
Assessment/Plan
-
68-year-old female with PMH of PUD, gallstones, HTN, HLD who presented with 1 day of acute abdominal pain, found to have pneumoperitoneum on CT, concerning for perforated viscus, unclear etiology, but possibly colonic
POD #2 ex lap, Green's with colostomy for perforated diverticulitis
AFVSS
WBC 7.6
� Continue n.p.o. with NGT and IVF; hold p.o. meds, okay for ice chips and swabs - await bowel function
� Pain control with Tylenol, Toradol, Dilaudid as needed
� OK for DVT ppx with lvx
� OOB, encourage IS
� Continue Zosyn
� Appreciate hospitalist
- D/c fili
Subjective Data
Procedure
12/13/2023 1) exploratory laparotomy 2) Nori's procedure (sigmoidectomy with rectopexy) 3) abdominal washout
Subjective Data
Date of Service: December 14, 2023
Patient states she still has some lower abdominal pain but it is controlled. She feels much improved from her abdominal pain prior to surgery. She has no nausea or vomiting. She has no flatus in her bag yet.
Objective Data
-
Vital Signs
Temp Pulse Resp BP Pulse Ox
98.8 F 69 16 125/74 94
12/14/23 07:59 12/14/23 07:59 12/14/23 07:59 12/14/23 07:59 07/27/24 08:00
Intake & Output
12/13/23 12/14/23 12/15/23
06:59 06:59 06:59
Intake Total 430 / 430 /
Output Total 400 / 400 2064
Balance -1974
Intake:
IV fluids (Total) 350 / 350
Normosol 100 / 100
IV piggybacks 50 / 50
Amount instilled into GI Tube ( 90 / 90
Total)
[place] Sump / 90 / 90
Output:
Drain Output (Total) 120 / 120 75 / 75
Right Lower Abdomen Sergey- 120 / 120 75 / 75
Curry
Gastrointestinal tube output ( 230 / 230
Total)
[place] Sump / 230 / 230
Urine, [place] 250 / 250 1510 / 1510
Urine, Voided 250 / 250
Lab Results
12/14/23 05:52
12/14/23 05:52
Physical Exam
-
General: No Acute Distress and AOx3
Abdomen: Soft, Non Distended, Tender (pain near incisions) and Other (KERRI drain bloody serous)
[2023-12-14 11:04] VITALS: BP 122/66
[2023-12-14] MEDS: DILAUDID 0.5 MG IV (11:10)
--- NOTE | 2023-12-14 13:16 | W.PN.ID1 ---
Date of Service
Date of Service: December 14, 2023
Today's Communication
continue unasyn
Assessment / Plan
Perforated Diverticulitis s/p Hartmanns
Secondary Peritonitis
- appreciate OR cultures, no organisms on the gram stain, anticipate polymicrobial growth - in progress
- continue unasyn, patient not known to be colonized with ESBLs, stop zosyn - will likely plan 5-7 day course
- qtc 407
- follow clinically
Chief Complaint
-: Other (secondary peritonitis)
Subjective / Review of Systems
afebrile
bp stable
without leukcotyosis
cr stable
wound cultures no growth
Vital Signs / Physical Exam
Vital Signs
Vital Signs
Temp Pulse Resp BP Pulse Ox
98.6 F 63 16 122/66 93
12/14/23 11:04 12/14/23 11:04 12/14/23 11:04 12/14/23 11:04 12/14/23 11:04
Physical Exam
Constitutional: No Acute Distress
Cardiovascular: Regular Rate and S1/S2; Negative Murmur or Rub
Pulmonary: Clear and Symmetric; Negative Wheezes or Rales
Gastrointestinal: Soft, Non Tender, Non Distended and Normal Bowel Sounds
Skin: Warm and Dry; Negative Rash or Jaundice
Objective Data
Lab Data
Lab Results
12/14/23 05:52
12/14/23 05:52
Estimated Creat Clear 70 ml/min 12/14/23 05:52
Lactic Acid Cancelled 12/12/23 15:30
Total Bilirubin 0.6 mg/dl (0.2-1.3) 12/12/23 11:34
AST 37 U/L (14-36) H 12/12/23 11:34
ALT 33 U/L (0-35) 12/12/23 11:34
Alkaline Phosphatase 76 U/L (38-126) 12/12/23 11:34
Most recent labs reviewed.
Micro Results:
12/13/23 02:33 Anaerobic Culture - Preliminary
Colon Culture pending. Anaerobic cultures are examined after 3
days incubation. Additional information to follow.
12/13/23 02:33 Wound Culture - Preliminary
Abdomen Gram Stain - Preliminary
12/12/23 14:07 Urine Culture - Final
Urine
[2023-12-14 15:10] VITALS: BP 140/69
[2023-12-14] MEDS: LOVENOX 40 MG SC (17:09)
[2023-12-14] MEDS: FLUSH (NSS) 2 FLUSH IV (20:13)
[2023-12-14 23:35] VITALS: BP 161/81
[2023-12-15] MEDS: DILAUDID 1 MG IV ×5 (02:50→20:18)
[2023-12-15] MEDS: TORADOL 15 MG IV ×4 (05:03→23:33)
[2023-12-15] MEDS: UNASYN IV ×4 (05:04→23:32)
[2023-12-15 06:22] LABS: Hematocrit 31.5 % (37.0-47.0); Hemoglobin 10.5 g/dL (12.0-16.0); Mean Corp Hgb Conc. 33.3 g/dL (33.0-37.0); Mean Corpuscular Hgb 28.6 pg (27.0-31.0); Mean Corpuscular Volume 85.8 fL (81.0-99.0); Mean Platelet Volume 10.3 fL (7.4-10.4); Platelet Count 255 10^3/uL (130-400); Red Blood Cell Count 3.67 10^6/uL (4.20-5.40); Red Cell Dist. Width 13.9 % (11.5-14.5); White Blood Cell Count 7.1 10^3/uL (4.8-10.8)
[2023-12-15 06:48] LABS: Blood Urea Nitrogen 6 mg/dl (7-17); Calcium 9.3 mg/dl (8.4-10.2); Carbon Dioxide 27 mmol/L (22-30); Chloride 105 mmol/L (98-107); Estimated Creatinine Clearance 70 ml/min; Glucose 119 mg/dl (70-99); Potassium 5.4 mmol/L (3.5-5.1); Sodium 136 mmol/L (135-145); eGFR > 60.00
[2023-12-15 07:39] VITALS: BP 138/77
[2023-12-15] MEDS: PROTONIX IV 40 MG IV (07:41)
[2023-12-15] MEDS: NSS (PRESERVATIVE FREE) 10 ML IV (07:41)
[2023-12-15] MEDS: D5LR 1000 IV (07:53)
[2023-12-15] MEDS: D5/0.45%NACL 1000 IV ×2 (08:30→21:41)
--- NOTE | 2023-12-15 08:30 | W.PN.CRS1 ---
Addendum entered and electronically signed by Mariano Mulligan MD 12/15/23 12:50:
Patient seen and examined.
Clinically stable. No new complaints. Abdominal exam benign. Awaiting return of bowel function.
Original Note:
Today's Communication / Plan
-
await bowel function
Assessment/Plan
-
68-year-old female with PMH of PUD, gallstones, HTN, HLD who presented with 1 day of acute abdominal pain, found to have pneumoperitoneum on CT, concerning for perforated viscus, unclear etiology, but possibly colonic
POD #2 ex lap, Green's with colostomy for perforated diverticulitis
AFVSS
WBC 7.1
� Continue n.p.o. with NGT and IVF; hold p.o. meds, okay for ice chips and swabs - await bowel function
� Pain control with Tylenol, Toradol, Dilaudid as needed
� OK for DVT ppx with lvx
� OOB, encourage IS
� Continue Zosyn
� Appreciate hospitalist
- Continue BECCA drain until discharge
Subjective Data
Procedure
12/13/2023 1) exploratory laparotomy 2) Nori's procedure (sigmoidectomy with rectopexy) 3) abdominal washout
Subjective Data
Date of Service: December 15, 2023
Patient states she has no nausea or vomiting. She has no bowel function yet. She has a sore throat from the NGT. Her pain is controlled.
Objective Data
-
Vital Signs
Temp Pulse Resp BP Pulse Ox
98.9 F 67 14 138/77 98
12/15/23 07:39 12/15/23 07:39 12/15/23 07:39 12/15/23 07:39 12/15/23 07:39
Intake & Output
12/14/23 12/15/23 12/16/23
06:59 06:59 06:59
Intake Total 90 / 90 1919 / 1919
Output Total 2064 2615 / 261
Balance -1974 / -1974 - /
Intake:
IV fluids (Total) 1500 / 1500
IV piggybacks 240 / 240
Amount instilled into GI Tube ( 90 / 90 180 / 180
Total)
[place] Sump 90 / 90 180 / 180
Output:
Drain Output (Total) 75 / 75 90 / 90
Right Lower Abdomen Sergey- 75 / 75 90 / 90
[place]
Gastrointestinal tube output ( 230 / 230 625 / 625
Total)
[place] Sump 230 / 230 625 / 625
Urine, [place] 1510 / 1510 1100 / 1100
Urine, Voided 250 / 250 800 / 800
Other:
Number of approximated MODERATE 2
amounts of urine
Lab Results
12/15/23 05:24
12/15/23 05:24
Physical Exam
-
General: No Acute Distress and AOx3
Abdomen: Soft, Non Distended, Non Tender and Other (becca drain with serous output, colostomy warm and pink - no output)
Skin: Warm and Dry
[2023-12-15 09:05] VITALS: BP 153/78
--- NOTE | 2023-12-15 10:00 | W.PN.HOSP.TC ---
Today's Communication/Plan
-
see bold
Assessment / Plan
Assessment / Plan
Gen: NAD, AAOx3.
Eyes: EOMI, PERRLA, no scleral icterus.
ENMT: Oropharynx without erythema or exudate (limited exam)
Neck: supple. B/L subandibular regions TTP, No lymphadenopathy
CV: remains RRR, +S1/S2, no m/r/g.
Resp: CTAB, no rales, wheezes, or rhonchi.
Abd: +BS, soft, tenderness to light palpation near incision site, ND
Skin: No rashes.
Neuro: CN 2-12 intact, non-focal.
Psych: Normal mood and affect.
Sepsis, POA, due to perforated viscus:
-CT A/P with PO contrast (done after initial CT A/P with IV contrast): Scattered pneumoperitoneum throughout the abdomen indicating a perforated viscus. The exact location of perforation is difficult to discern. Given that the free air is mostly
located in the upper abdomen, a perforated peptic ulcer would be the primary consideration. Perforated diverticulitis is an alternative consideration, but no clear evidence for acute diverticulitis on this exam.
-taken to OR 726/24AM for exploratory laparotomy, Nori's procedure (sigmoidectomy with rectopexy), abdominal washout
-leukocytosis has resolved
-cont IV Unasyn as per ID
-NGT remains in place
-CRS following
-cont IVFs
-pain control with Toradol/dilaudid
Hyperkalemia:
-insulin/D50W
-recheck K at 1800
Other problems:
Essential hypertension: BP Stable/acceptable at this time
Peptic ulcer disease: Cont IV PPI
Hypothyroidism: start IV synthroid
FULL/Lovenox
Anticipated Discharge: > 48 hours
Subjective/Interval History
-
Date of Service: December 15, 2023
Pt c/o sore throat since prior to admission. Also reports 'swollen glands' in her neck prior to admission. Abd pain at incision site. As per nursing small amount of ostomy output and some gas.
Objective Data
-
Labs:
Laboratory Results
12/15/23
05:24
WBC 7.1
Hgb 10.5 L
Hct 31.5 L
Plt Count 255
Sodium 136
Potassium 5.4 H D
Chloride 105
Carbon Dioxide 27
BUN 6 L
Creatinine 0.8
Glucose 119 H
Calcium 9.3
Vital Signs:
Vital Signs
Temp Pulse Resp BP Pulse Ox
98.9 F 67 14 138/77 98
12/15/23 07:39 12/15/23 07:39 12/15/23 07:39 12/15/23 07:39 12/15/23 07:39
I&O
12/14/23 12/15/23 12/16/23
06:59 06:59 06:59
Intake Total 90 / 90 1919 / 1919
Output Total 2064 / 2064 261 / 2614
Balance -1974 / -1974 - /
[2023-12-15] MEDS: DEXTROSE 50% SYRINGE 25 GRAMS IV (10:26)
[2023-12-15] MEDS: CHLORASEPTIC/SORE THROAT SPRAY 1 SPRAY PO (10:34)
[2023-12-15] MEDS: NOVOLIN R 0.1 UNITS IV (11:00)
[2023-12-15 15:41] VITALS: BP 155/77
[2023-12-15] MEDS: LOVENOX 40 MG SC (17:36)
[2023-12-15 17:57] LABS: Potassium 3.8 mmol/L (3.5-5.1)
[2023-12-15] MEDS: LEVOTHROID 18.75 MCG IV (18:04)
[2023-12-15 23:40] VITALS: BP 159/82
[2023-12-15 23:44] VITALS: BP 159/82
[2023-12-16] MEDS: DILAUDID 0.5 MG IV (00:52)
[2023-12-16] MEDS: TORADOL 15 MG IV ×4 (04:28→22:30)
[2023-12-16] MEDS: UNASYN IV ×2 (05:37→11:58)
[2023-12-16 06:00] VITALS: BMI 26.6
[2023-12-16 07:05] VITALS: BP 150/84
[2023-12-16] MEDS: DILAUDID 1 MG IV ×3 (07:58→20:25)
[2023-12-16] MEDS: PROTONIX IV 40 MG IV (07:59)
[2023-12-16] MEDS: NSS (PRESERVATIVE FREE) 10 ML IV (07:59)
[2023-12-16 08:19] LABS: % Basophils 0.4 % (0-2); % Eosinophils 8.6 % (0-6); % Immature Granulocytes 0.4 % (0-0.5); % Lymphocytes 15.3 % (20.5-51.1); % Monocytes 12.6 % (1.7-9.3); % Neutrophils 62.7 % (42.2-75.2); Absolute Eosinophils 0.5 10^3/uL (0-0.7); Absolute Lymphocytes 0.9 10^3/uL (1.2-3.4); Absolute Monocytes 0.7 10^3/uL (0.1-0.6); Absolute Neutrophils 3.5 10^3/uL (1.4-6.5); Hematocrit 35.4 % (37.0-47.0); Mean Corp Hgb Conc. 33.9 g/dL (33.0-37.0); Mean Corpuscular Hgb 28.6 pg (27.0-31.0); Mean Corpuscular Volume 84.5 fL (81.0-99.0); Mean Platelet Volume 9.5 fL (7.4-10.4); Nucleated Red Blood Cells % 0 %; Platelet Count 262 10^3/uL (130-400); Red Blood Cell Count 4.19 10^6/uL (4.20-5.40); Red Cell Dist. Width 13.4 % (11.5-14.5); White Blood Cell Count 5.6 10^3/uL (4.8-10.8)
[2023-12-16 08:29] LABS: Blood Urea Nitrogen 5 mg/dl (7-17); Calcium 9.5 mg/dl (8.4-10.2); Carbon Dioxide 28 mmol/L (22-30); Chloride 104 mmol/L (98-107); Estimated Creatinine Clearance 71 ml/min; Glucose 117 mg/dl (70-99); Potassium 3.9 mmol/L (3.5-5.1); Sodium 136 mmol/L (135-145); eGFR > 60.00
--- NOTE | 2023-12-16 09:04 | W.PN.CRS1 ---
Today's Communication / Plan
-
Clamp trial x 6 hours; if less than 150 mL, okay to remove and put on sips
Assessment/Plan
-
68-year-old female with PMH of PUD, gallstones, HTN, HLD who presented with 1 day of acute abdominal pain, found to have pneumoperitoneum on CT, concerning for perforated viscus, unclear etiology, but possibly colonic
POD 3 ex lap, Green's with rectopexy for perforated diverticulitis
AFVSS, NGT- 500mL gastric
Labs pending
� Continue n.p.o. with NGT and IVF; hold p.o. meds, okay for ice chips and swabs
-Clamp trial for 6 hours; if less than 150mL and no N/V, ok to remove
� Pain control with Tylenol, Toradol, Dilaudid as needed
� Cont for DVT ppx with lvx
�OOB, encourage IS
� Continue unasyn, appreciate ID
�Appreciate [facility]
� Appreciate hospitalist
Subjective Data
Procedure
12/13/2023 1) exploratory laparotomy 2) Nori's procedure (sigmoidectomy with rectopexy) 3) abdominal washout
Subjective Data
Date of Service: December 16, 2023
No overnight events.
Pain controlled.
Denies nausea/vomiting. Had some burping. Currently n.p.o. with NGT.
+ Ostomy function (flatus, no stool) +voiding
Pt is OOB.
Objective Data
-
Vital Signs
Temp Pulse Resp BP Pulse Ox
98.0 F 62 12 150/84 98
12/16/23 07:05 12/16/23 07:05 12/16/23 07:05 12/16/23 07:05 12/16/23 07:05
Intake & Output
07/28/24 07/29/24 07/30/24
06:59 06:59 06:59
Intake Total 1920 / 1920 1480 / 1480
Output Total 2615 / 2615 535 / 535
Balance -695 / -695 945 / 945
Intake:
Oral fluids 180 / 180
IV fluids (Total) 1500 / 1500 880 / 880
IV piggybacks 240 / 240 240 / 240
Amount instilled into GI Tube ( 180 / 180 180 / 180
Total)
[place] Sump 180 / 180 180 / 180
Output:
Drain Output (Total) 35 / 35
Right Lower Abdomen Sergey- 35 / 35
Curry
Gastrointestinal tube output ( 625 / 625 500 / 500
Total)
[place] Sump 625 / 625 500 / 500
Urine, [place] 1100 / 1100
Urine, Voided 800 / 800
Other:
Number of approximated MODERATE 2 1
amounts of urine
Lab Results
12/16/23 08:07
12/16/23 08:07
Physical Exam
-
General: No Acute Distress and AOx3
HEENT: Grossly Normal
Abdomen: Soft, Non Distended, Tender (Appropriately tender near incision), No Guarding, No Rebound and Other (Ostomy pink, KERRI-35 mL serosanguineous)
Skin: Warm and Dry
Wound: No Signs of Infection, Dressing in Place (Removed Telfa yudelka) and No Skin Erythema
[2023-12-16 10:39] LABS: Glucose - Point of Care 114 mg/dl (70-99)
[2023-12-16] MEDS: D5/0.45%NACL 1000 IV ×2 (10:52→21:54)
--- NOTE | 2023-12-16 11:01 | PTCARENOTE ---
Addendum entered by Traci Fam RN 12/16/23 15:24:
Pt with continued lightheadedness/ dizziness while obtaining orthostatic BPs. BP asymptomatic until in standing position. Pt did not become hypotensive and remained alert and oriented/ able to follow commands while symptomatic. Pt assisted back to
bed via NSG staff. Dr Louis made aware. Care ongoing.
Original Note:
RN called into room by PCT pt found sitting on the toilet c/o dizziness/ lightheadedness. Upon assessment Pt alert and able to follow commands but slumped forward being supported by the PCT. Pt began feeling unwell while standing brushing teeth and
was assisted to sitting on the toilet by PCT. Pt assisted back to bed via NSG staff. VSS. IVF infusing per order. Pt does admit to hx of vasovagal events and has had syncopal episodes in the past. Dr Louis and Dr Elizabeth aware, Pt placed on telemetry
in NSR. at beside. Care remains ongoing.
[2023-12-16 11:05] VITALS: BP 134/63
--- NOTE | 2023-12-16 12:02 | CM ---
Chart reviewed and patient is not stable for discharge per physician, plan will be for patient to return to home when stable with visiting nurses, visiting nurse options reviewed with patient and patient has selected [facility], referral sent to [facility].
Plan; Home with [facility] when stable.
--- NOTE | 2023-12-16 12:03 | W.PN.HOSP.TC ---
Today's Communication/Plan
-
NGT clamp trial
IV abx per ID
Assessment / Plan
Assessment / Plan
Assessment:
Sepsis, POA, due to perforated viscus:
- CT A/P with PO contrast (done after initial CT A/P with IV contrast): Scattered pneumoperitoneum throughout the abdomen indicating a perforated viscus. The exact location of perforation is difficult to discern. Given that the free air is mostly
located in the upper abdomen, a perforated peptic ulcer would be the primary consideration. Perforated diverticulitis is an alternative consideration, but no clear evidence for acute diverticulitis on this exam.
- s/p Urgent OR 12/12 for exploratory laparotomy, Nori's procedure (sigmoidectomy with rectopexy), abdominal washout
- continue IV Unasyn per ID; 5-7 day course
- NGT clamped; trial to be performed in afternoon for possible removal
- continue IVF
- pain control
- Rehab evaluations
- CRS following
Pre-syncope
self reported history of vasovagal syncope
- monitor tele
Hyperkalemia
- s/p insulin/D50W
- repeat K+ level improved
Essential hypertension: BP Stable/acceptable at this time
Peptic ulcer disease: Cont IV PPI
Hypothyroidism: start IV Synthroid until cleared for PO
DVT ppx: Lovenox
Code: Full
Anticipated Discharge: > 48 hours
Subjective/Interval History
-
Date of Service: December 16, 2023
no new complaints
NGT clamped
later in morning, patient with pre-syncopal symptoms but syncope did not occur; she reports history of vasovagal syncope
Objective Data
-
Labs:
Laboratory Results
12/16/23
08:07
WBC 5.6
Hgb 12.0
Hct 35.4 L
Plt Count 262
Sodium 136
Potassium 3.9
Chloride 104
Carbon Dioxide 28
BUN 5 L
Creatinine 0.7
Glucose 117 H
Calcium 9.5
Vital Signs:
Vital Signs
Temp Pulse Resp BP Pulse Ox
99.0 F 56 16 134/63 97
12/16/23 11:05 12/16/23 11:05 12/16/23 11:05 12/16/23 11:05 12/16/23 11:05
I&O
12/15/23 12/16/23 12/17/23
06:59 06:59 06:59
Intake Total 1920 / 1920 1480 / 1480
Output Total 2615 / 2615 535 / 535
Balance -695 / -695 945 / 945
Physical Exam
-
General: No Apparent Distress
HEENT: Normocephalic, Atraumatic and Other (+ NGT)
Respiratory: Negative Wheezes
Cardiac: Regular Rhythm and S1/S2
GI: Soft and Nontender
Genito-urinary: No Costovertebral Tender
Psych: Calm
Data Reviewed
-
Total Time Spent with Patient (in minutes): 44
Labs: Labs Reviewed by me
--- NOTE | 2023-12-16 12:52 | VNURNOTE ---
Chart reviewed. [facility] liaison attempted to meet patient at bedside. Patient was sleeping. Will attempt to meet her later. Referral placed in [facility].
[2023-12-16] MEDS: ZOSYN 50 IV ×2 (14:23→20:13)
--- NOTE | 2023-12-16 14:51 | WOUNDNOTE ---
WON RN NOTE: Followed up today for appliance change and teaching session, with Alfredo participating. Showed patient and how to burp pouch and empty with return demonstration. cut out wafer, stoma is 1 1/4' pink and budded,
peristomal skin intact. Reviewed ADL's with a pouch, emptying, skin care and step by step how to change pouch. Answered all questions. Additional supplies ordered for bedside. Patient complained of severe itching on buttocks and flank, patient
scratching area. Removed pad from under patient, suspect either a reaction to pad or from sweating. Buttocks is red, appears fungal from moisture. Ordered fungal powder to be used bid. Nurse made aware and will follow as needed.
[2023-12-16 15:02] VITALS: BP 150/84
[2023-12-16 15:15] VITALS: BP 128/72; BP 130/74; BP 150/84; PULSE 65; PULSE 72; PULSE 82
[2023-12-16] MEDS: BENADRYL 25 MG IV ×2 (15:35→22:37)
--- NOTE | 2023-12-16 16:11 | VNURNOTE ---
Second attempt to meet patient at bedside. Door was closed, lights appeared to be off. Will reach out tomorrow.
--- NOTE | 2023-12-16 16:58 | W.PN.ID1 ---
Date of Service
Date of Service: December 16, 2023
Today's Communication
- OR cultures with Pseudomonas which is unusual in additional to more common enterics
- restart zosyn, will continue IV while inpatient, if discharge planned will switch to cipro/metro to complete another 5 days
- follow clinically
Assessment / Plan
Perforated Diverticulitis s/p Hartmanns
Secondary Peritonitis
- OR cultures with Pseudomonas which is unusual in additional to more common enterics
- restart zosyn, will continue IV while inpatient, if discharge planned will switch to cipro/metro to complete another 5 days
- follow clinically
Chief Complaint
-: Other (secondary peritonitis)
Subjective / Review of Systems
afebrile
bp stable
without leukocytosis
Vital Signs / Physical Exam
Vital Signs
Vital Signs
Temp Pulse Resp BP Pulse Ox
98.7 F 71 16 150/84 97
12/16/23 15:02 12/16/23 15:02 12/16/23 15:02 12/16/23 15:02 12/16/23 15:02
Physical Exam
Constitutional: No Acute Distress
Cardiovascular: Regular Rate and S1/S2; Negative Murmur or Rub
Pulmonary: Clear and Symmetric; Negative Wheezes or Rales
Gastrointestinal: Soft, Non Tender, Non Distended, Normal Bowel Sounds and Other (stoma pink)
Skin: Warm and Dry; Negative Rash or Jaundice
Objective Data
Lab Data
Lab Results
12/16/23 08:07
12/16/23 08:07
Estimated Creat Clear 71 ml/min 12/16/23 08:07
Lactic Acid Cancelled 12/12/23 15:30
Total Bilirubin 0.6 mg/dl (0.2-1.3) 12/12/23 11:34
AST 37 U/L (14-36) H 12/12/23 11:34
ALT 33 U/L (0-35) 12/12/23 11:34
Alkaline Phosphatase 76 U/L (38-126) 12/12/23 11:34
Most recent labs reviewed.
Micro Results:
12/13/23 02:33 Anaerobic Culture - Preliminary
Colon Culture pending. Anaerobic cultures are examined after 3
days incubation. Additional information to follow.
12/13/23 02:33 Wound Culture - Preliminary
Abdomen Enterococcus faecalis
Escherichia coli
Escherichia coli#2
Pseudomonas aeruginosa
Viridans Streptococcus Group
Gram Stain - Preliminary
12/12/23 14:07 Urine Culture - Final
Urine
Care Review
Plan reviewed with: Physician (Dr Louis - babatunde matute)
[2023-12-16] MEDS: LEVOTHROID 18.75 MCG IV (17:15)
[2023-12-16] MEDS: LOVENOX 40 MG SC (17:16)
[2023-12-16 19:29] VITALS: BP 143/85
[2023-12-16] MEDS: DESENEX/MITRAZOL/ZEASORB 1 APPLIC TOPICAL (20:14)
[2023-12-16 23:19] VITALS: BP 154/80
[2023-12-17] MEDS: ZOSYN 50 IV ×4 (01:14→19:54)
[2023-12-17 03:39] VITALS: BP 159/89
[2023-12-17] MEDS: TORADOL 15 MG IV ×3 (05:39→16:56)
[2023-12-17 06:20] VITALS: BMI 28.0
[2023-12-17 07:05] VITALS: BP 149/78
[2023-12-17 07:19] LABS: Hematocrit 33.9 % (37.0-47.0); Hemoglobin 11.9 g/dL (12.0-16.0); Mean Corp Hgb Conc. 35.1 g/dL (33.0-37.0); Mean Corpuscular Hgb 29.2 pg (27.0-31.0); Mean Corpuscular Volume 83.1 fL (81.0-99.0); Mean Platelet Volume 9.8 fL (7.4-10.4); Platelet Count 273 10^3/uL (130-400); Red Blood Cell Count 4.08 10^6/uL (4.20-5.40); Red Cell Dist. Width 13.3 % (11.5-14.5)
[2023-12-17] MEDS: PROTONIX IV 40 MG IV (07:31)
[2023-12-17] MEDS: NSS (PRESERVATIVE FREE) 10 ML IV (07:32)
[2023-12-17] MEDS: DILAUDID 0.5 MG IV ×2 (07:32→13:52)
[2023-12-17] MEDS: DESENEX/MITRAZOL/ZEASORB 1 APPLIC TOPICAL ×2 (07:34→19:54)
[2023-12-17 07:59] LABS: Blood Urea Nitrogen 7 mg/dl (7-17); Calcium 9.3 mg/dl (8.4-10.2); Carbon Dioxide 23 mmol/L (22-30); Chloride 105 mmol/L (98-107); Estimated Creatinine Clearance 70 ml/min; Glucose 109 mg/dl (70-99); Potassium 3.5 mmol/L (3.5-5.1); Sodium 136 mmol/L (135-145); eGFR > 60.00
[2023-12-17] MEDS: BENADRYL 25 MG IV ×2 (08:54→19:54)
--- NOTE | 2023-12-17 09:48 | W.PN.CRS1 ---
Today's Communication / Plan
-
Clear liquids
Assessment/Plan
-
68-year-old female with PMH of PUD, gallstones, HTN, HLD who presented with 1 day of acute abdominal pain, found to have pneumoperitoneum on CT, concerning for perforated viscus, unclear etiology, but possibly colonic
POD 4 ex lap, Green's with rectopexy for perforated diverticulitis
AFVSS
WBC 6.0
�Advance diet to clear liquids
� Pain control with Tylenol, Toradol, Dilaudid as needed
� Cont for DVT ppx with lvx
�OOB, encourage IS
� Continue unasyn, appreciate ID
�Appreciate WOCN
� Appreciate hospitalist
Subjective Data
Procedure
12/13/2023 1) exploratory laparotomy 2) Nori's procedure (sigmoidectomy with rectopexy) 3) abdominal washout
Subjective Data
Date of Service: December 17, 2023
Patient states that she is feeling well. She has no nausea or vomiting. She is hungry. She has flatus in her bag. She has not had any bowel movements yet. Her drain is serosanguineous.
Objective Data
-
Vital Signs
Temp Pulse Resp BP Pulse Ox
99.3 F 59 14 149/78 99
12/17/23 07:05 12/17/23 07:05 12/17/23 07:05 12/17/23 07:05 12/17/23 07:05
Intake & Output
12/16/23 12/17/23 12/18/23
06:59 06:59 06:59
Intake Total 1480 / 1480 2270 / 2270
Output Total 535 / 535 360 / 360
Balance 945 / 945 1909 / 1909
Intake:
Oral fluids 180 / 180 120 / 120
IV fluids (Total) 880 / 880 1879 1879
IV piggybacks 240 / 240 270 / 270
Amount instilled into GI Tube ( 180 / 180
Total)
[place] Sump 180 / 180
Output:
Drain Output (Total)
Right Lower Abdomen Sergey-
Curry
Gastrointestinal tube output ( 500 / 500
Total)
[place] Sump 500 / 500
Urine, Voided 350 / 350
Other:
Number of approximated MODERATE 1 1
amounts of urine
Number of approximated LARGE 1
amounts of urine
Lab Results
12/17/23 06:57
12/17/23 06:57
Physical Exam
-
General: No Acute Distress and AOx3
Abdomen: Soft, Non Distended, Non Tender and Other (Colostomy warm and pink with flatus in bag, KERRI drain serosanguineous)
Wound: Dressing in Place
--- NOTE | 2023-12-17 10:19 | VNURNOTE ---
Home Health Liaison met with patient at bedside to discuss [facility] nurse/therapy, visits, schedule and homebound status. Patient is agreeable and understands that visits at home will be 2-3 x per week to assess and teach medical management, and provide
ostomy teaching. [facility] brochure provided with contact information. Patient is aware that [facility] will contact them for start of care within a few days after discharge from .
[facility] referral has been accepted in [facility].
[2023-12-17] MEDS: D5/0.45%NACL 1000 IV (11:26)
[2023-12-17 11:39] VITALS: BP 133/69
--- NOTE | 2023-12-17 13:28 | W.PN.HOSP.TC ---
Today's Communication/Plan
-
continue current plan
Assessment / Plan
Assessment / Plan
Assessment:
Sepsis, POA, due to perforated viscus:
- CT A/P with PO contrast (done after initial CT A/P with IV contrast): Scattered pneumoperitoneum throughout the abdomen indicating a perforated viscus. The exact location of perforation is difficult to discern. Given that the free air is mostly
located in the upper abdomen, a perforated peptic ulcer would be the primary consideration. Perforated diverticulitis is an alternative consideration, but no clear evidence for acute diverticulitis on this exam.
- s/p Urgent OR 12/12 for exploratory laparotomy, Nori's procedure (sigmoidectomy with rectopexy), abdominal washout
- continue IV Zosyn per ID; cultures polymicrobial along with Pseudomonas
- s/p NGT tube, now on clears
- continue pain control
- Rehab evaluations
- CRS following
Pre-syncope
self reported history of vasovagal syncope
- monitor tele
Hyperkalemia
- s/p insulin/D50W
- repeat K+ level improved
Essential hypertension: BP Stable/acceptable at this time
Peptic ulcer disease: Cont PPI
Hypothyroidism: Cont Synthroid
DVT ppx: Lovenox
Code: Full
Anticipated Discharge: > 48 hours
Subjective/Interval History
-
Date of Service: December 17, 2023
passing flatus in bag and feels hungry, clears were started
Objective Data
-
Labs:
Laboratory Results
12/17/23
06:57
WBC 6.0
Hgb 11.9 L
Hct 33.9 L
Plt Count 273
Sodium 136
Potassium 3.5
Chloride 105
Carbon Dioxide 23
BUN 7
Creatinine 0.8
Glucose 109 H
Calcium 9.3
Vital Signs:
Vital Signs
Temp Pulse Resp BP Pulse Ox
98.4 F 62 14 133/69 99
12/17/23 11:39 12/17/23 11:39 12/17/23 11:39 12/17/23 11:39 12/17/23 11:39
I&O
12/16/23 12/17/23 12/18/23
06:59 06:59 06:59
Intake Total 1480 / 1480 2270 / 2270
Output Total 535 / 535 360 / 360
Balance 945 / 945 191 / 1909
Physical Exam
-
General: No Apparent Distress
HEENT: Normocephalic and Atraumatic
Respiratory: Negative Wheezes
Cardiac: Regular Rhythm and S1/S2
GI: Soft
Musculoskeletal: No Edema
Neuro: AO x 3
Hematologic / Lymphatic: No Lymphadenopathy
Psych: Calm
Data Reviewed
-
Total Time Spent with Patient (in minutes): 42
Labs: Labs Reviewed by me
[2023-12-17 15:25] VITALS: BP 147/79
--- NOTE | 2023-12-17 16:55 | CM ---
CM reviewed chart. CM introduced self and role. Patient is POD #4.
[facility] liaison saw patient today.
WO has seen patient and and provide them with ostomy teaching yesterday.
Patient's NGT was d/c'd and she is now on clears.
Infectious Disease would like to continue Zosyn.
Patient continues with KERRI drain.
CM will continue to follow patient's case. CM available for assistance with further discharge needs.
[2023-12-17] MEDS: LOVENOX 40 MG SC (17:00)
--- NOTE | 2023-12-17 17:06 | W.PN.ID1 ---
Date of Service
Date of Service: December 17, 2023
Today's Communication
- continue zosyn, will continue IV while inpatient, if discharge planned will switch to cipro/metro to complete another 4 days
- follow clinically
Assessment / Plan
Perforated Diverticulitis s/p Hartmanns
Secondary Peritonitis
- OR cultures with Pseudomonas which is unusual in additional to more common enterics
- continue zosyn, will continue IV while inpatient, if discharge planned will switch to cipro/metro to complete another 4 days
- follow clinically
Chief Complaint
-: Other (secondary peritonitis)
Subjective / Review of Systems
afebrile
air is ostomy bag
no complaints
Vital Signs / Physical Exam
Vital Signs
Vital Signs
Temp Pulse Resp BP Pulse Ox
98.9 F 63 14 147/79 99
12/17/23 15:25 12/17/23 15:25 12/17/23 15:25 12/17/23 15:25 12/17/23 15:25
Physical Exam
Constitutional: No Acute Distress
Cardiovascular: Regular Rate and S1/S2; Negative Murmur or Rub
Pulmonary: Clear and Symmetric; Negative Wheezes or Rales
Gastrointestinal: Soft, Non Tender, Non Distended and Normal Bowel Sounds
Skin: Warm, Dry and Other (stoma pink); Negative Rash or Jaundice
Lines: Other (ostomy bag clean)
Objective Data
Lab Data
Lab Results
12/17/23 06:57
12/17/23 06:57
Estimated Creat Clear 70 ml/min 12/17/23 06:57
Lactic Acid Cancelled 12/12/23 15:30
Total Bilirubin 0.6 mg/dl (0.2-1.3) 12/12/23 11:34
AST 37 U/L (14-36) H 12/12/23 11:34
ALT 33 U/L (0-35) 12/12/23 11:34
Alkaline Phosphatase 76 U/L (38-126) 12/12/23 11:34
Most recent labs reviewed.
Micro Results:
12/13/23 02:33 Anaerobic Culture - Preliminary
Colon Culture pending. Anaerobic cultures are examined after 3
days incubation. Additional information to follow.
12/13/23 02:33 Wound Culture - Preliminary
Abdomen Enterococcus faecalis
Escherichia coli
Pseudomonas aeruginosa
Viridans Streptococcus Group
Gram Stain - Preliminary
12/12/23 14:07 Urine Culture - Final
Urine
[2023-12-17 19:48] VITALS: BP 121/65
[2023-12-17] MEDS: TUMS 1 TABLET PO (22:36)
[2023-12-17 23:24] VITALS: BP 134/74
[2023-12-17] MEDS: TORADOL IV (23:30)
[2023-12-17] MEDS: DILAUDID 1 MG IV (23:47)
[2023-12-18] VITALS (7 sets, daily range): BP systolic 110–146; BP diastolic 63–73; PULSE 62; O2SAT 100; BMI 26.8
[2023-12-18] MEDS: ZOSYN 50 IV ×4 (02:59→20:56)
[2023-12-18] MEDS: DILAUDID 0.5 MG IV (04:13)
[2023-12-18 06:51] LABS: Hematocrit 33.7 % (37.0-47.0); Hemoglobin 11.6 g/dL (12.0-16.0); Mean Corp Hgb Conc. 34.4 g/dL (33.0-37.0); Mean Corpuscular Hgb 29.1 pg (27.0-31.0); Mean Corpuscular Volume 84.5 fL (81.0-99.0); Mean Platelet Volume 9.9 fL (7.4-10.4); Platelet Count 295 10^3/uL (130-400); Red Blood Cell Count 3.99 10^6/uL (4.20-5.40); Red Cell Dist. Width 13.7 % (11.5-14.5); White Blood Cell Count 8.2 10^3/uL (4.8-10.8)
[2023-12-18 07:19] LABS: Blood Urea Nitrogen 10 mg/dl (7-17); Calcium 9.2 mg/dl (8.4-10.2); Carbon Dioxide 24 mmol/L (22-30); Chloride 105 mmol/L (98-107); Estimated Creatinine Clearance 55 ml/min; Glucose 92 mg/dl (70-99); Potassium 3.3 mmol/L (3.5-5.1); Sodium 137 mmol/L (135-145); eGFR > 60.00
[2023-12-18] MEDS: NSS (PRESERVATIVE FREE) 10 ML IV (08:32)
[2023-12-18] MEDS: PROTONIX IV 40 MG IV (08:32)
[2023-12-18] MEDS: DESENEX/MITRAZOL/ZEASORB 1 APPLIC TOPICAL ×2 (08:32→20:59)
[2023-12-18] MEDS: BENADRYL 25 MG IV ×2 (08:35→18:03)
--- NOTE | 2023-12-18 08:56 | W.PN.CRS1 ---
Today's Communication / Plan
-
advance diet
po pain medication
Assessment/Plan
-
68-year-old female with PMH of PUD, gallstones, HTN, HLD who presented with 1 day of acute abdominal pain, found to have pneumoperitoneum on CT, concerning for perforated viscus, unclear etiology, but possibly colonic
POD #5 ex lap, Green's with rectopexy for perforated diverticulitis
AFVSS
WBC 8.2
�Advance diet to full liquids. If tolerates, can start on low residue.
� Pain control with Tylenol, Toradol, switch Dilaudid IV to oxycodone PRN.
� Cont for DVT ppx with lovenox, TEDS/SCDS
� OOB, encourage IS
� Continue unasyn, appreciate ID
� Appreciate [facility]OC[facility]
� Appreciate hospitalist
- Ancipitate d/c by end of week
- KERRI drain to be removed prior to discharge
Subjective Data
Procedure
12/13/2023 1) exploratory laparotomy 2) Nori's procedure (sigmoidectomy with rectopexy) 3) abdominal washout
Subjective Data
Date of Service: December 18, 2023
Patient states she has mild pain around her drain. She has no nausea or vomiting. She is tolerating clears. She has flatus in her bag, no bowel movement yet.
Objective Data
-
Vital Signs
Temp Pulse Resp BP Pulse Ox
98.5 F 61 19 139/70 99
12/18/23 07:41 12/18/23 07:41 12/18/23 07:41 12/18/23 07:41 12/18/23 07:41
Intake & Output
12/17/23 12/18/23 12/19/23
06:59 06:59 06:59
Intake Total 2270 / 2270 1890 / 1890
Output Total 360 / 360
Balance 1909
Intake:
Oral fluids 120 / 120 1060 / 1060
IV fluids (Total) 1879 630 / 630
IV piggybacks 270 / 270 200 / 200
Output:
Drain Output (Total)
Right Lower Abdomen Sergey-
Curry
Urine, Voided 350 / 350
Other:
Number of approximated MODERATE 1 1
amounts of urine
Number of approximated LARGE 1 5
amounts of urine
Lab Results
12/18/23 05:39
12/18/23 05:39
Physical Exam
-
General: No Acute Distress and AOx3
Abdomen: Soft, Non Distended, Tender (around drain site) and Other (KERRI drain serous)
Skin: Warm and Dry
Wound: Dressing Changed
Incision: Clear, Dry, Intact
--- NOTE | 2023-12-18 09:00 | WOUNDNOTE ---
WON RN NOTE: Followed up today regarding sore on L Nare. Appears to be an abrasion/friction from old NGT that is healing. Slightly red and not draining, patient states she has been applying A&D ointment on area and it is getting better. Stoma
remains pink, no leakage. Reviewed ostomy appliance change with patient and emptying. Support and encouragement given, answered all questions.
--- NOTE | 2023-12-18 09:40 | W.PN.HOSP.TC ---
Today's Communication/Plan
-
rash treatment, change sheets
transition to PO pain control
hopefully transition soon to PO abx
follow surgery recs for post-op care, diet advancements
Assessment / Plan
Assessment / Plan
Assessment:
Sepsis, POA, due to perforated viscus:
- CT A/P with PO contrast (done after initial CT A/P with IV contrast): Scattered pneumoperitoneum throughout the abdomen indicating a perforated viscus. The exact location of perforation is difficult to discern. Given that the free air is mostly
located in the upper abdomen, a perforated peptic ulcer would be the primary consideration. Perforated diverticulitis is an alternative consideration, but no clear evidence for acute diverticulitis on this exam.
- s/p Urgent OR 12/12 for exploratory laparotomy, Nori's procedure (sigmoidectomy with rectopexy), abdominal washout. Path pending.
- continue IV Zosyn per ID; cultures polymicrobial along with Pseudomonas
- s/p NGT tube, now on clears
- continue pain control
- Rehab evaluations
- CRS following
Pre-syncope
self reported history of vasovagal syncope
- monitor tele
Suspected heat rash
- likely from bedsheets, moisture, pressure against sheet/pads
- asked RN To change bed sheets to hypoallergenic sheets
- prn Benadryl helpful
- doubtful antibiotic allergy as isolated to posterior skin only (not generalized)
Hyperkalemia
- s/p insulin/D50W
- repeat K+ level improved
Essential hypertension: BP Stable/acceptable at this time
Peptic ulcer disease: Cont PPI
Hypothyroidism: Cont Synthroid
DVT ppx: Lovenox
Code: Full
Anticipated Discharge: > 48 hours
Subjective/Interval History
-
Date of Service: December 18, 2023
rash across posterior neck, back, buttocks, no spread to chest/abdomen below groin anywhere
reports Benadryl is helping
also requesting Tums
clears are going well no other complaints
Objective Data
-
Labs:
Laboratory Results
12/18/23
05:39
WBC 8.2
Hgb 11.6 L
Hct 33.7 L
Plt Count 295
Sodium 137
Potassium 3.3 L
Chloride 105
Carbon Dioxide 24
BUN 10
Creatinine 0.9
Glucose 92
Calcium 9.2
Vital Signs:
Vital Signs
Temp Pulse Resp BP Pulse Ox
98.5 F 61 19 139/70 99
12/18/23 07:41 12/18/23 07:41 12/18/23 07:41 12/18/23 07:41 12/18/23 07:41
I&O
12/17/23 12/18/23 12/19/23
06:59 06:59 06:59
Intake Total 2270 / 2270 1889
Output Total 360 / 360
Balance 1909
Physical Exam
-
General: No Apparent Distress
HEENT: Normocephalic and Atraumatic
Respiratory: Negative Wheezes
Cardiac: Regular Rhythm and S1/S2
GI: Soft, Nontender and Ostomy
Genito-urinary: No Costovertebral Tender
Musculoskeletal: No Edema
Skin: Other (diffuse heat rash posterior neck to buttocks bilaterally)
Neuro: AO x 3
Hematologic / Lymphatic: No Lymphadenopathy
Psych: Calm
Data Reviewed
-
Total Time Spent with Patient (in minutes): 45
Labs: Labs Reviewed by me
[2023-12-18] MEDS: TUMS 1 TABLET PO ×2 (09:59→18:03)
--- NOTE | 2023-12-18 11:14 | W.PN.ID1 ---
Date of Service
Date of Service: December 18, 2023
Today's Communication
milia on the back not a drug rash; rash is from sweating while in the bed
- OR cultures with Pseudomonas which is unusual in additional to more common enterics
- continue zosyn, will continue IV for present when able to take pills can switch to cipro/metro to complete another 3 days
Assessment / Plan
Perforated Diverticulitis s/p Hartmanns
Secondary Peritonitis
- milia on the back not a drug rash; rash is from sweating while in the bed
- OR cultures with Pseudomonas which is unusual in additional to more common enterics
- continue zosyn, will continue IV for present when able to take pills can switch to cipro/metro to complete another 3 days
- follow clinically
Chief Complaint
-: Other (secondary peritonitis)
Subjective / Review of Systems
afebrile
bp stable
new rash only on the back, mildly pruritic, not on the abdomen or arm
Vital Signs / Physical Exam
Vital Signs
Vital Signs
Temp Pulse Resp BP Pulse Ox
98.5 F 61 19 139/70 99
12/18/23 07:41 12/18/23 07:41 12/18/23 07:41 12/18/23 07:41 12/18/23 07:41
Physical Exam
Constitutional: No Acute Distress
Cardiovascular: Regular Rate
Pulmonary: Symmetric and Non Labored
Gastrointestinal: Non Distended
Skin: Warm, Dry and Rash (back only, milia); Negative Jaundice
Objective Data
Lab Data
Lab Results
12/18/23 05:39
12/18/23 05:39
Estimated Creat Clear 55 ml/min 12/18/23 05:39
Lactic Acid Cancelled 12/12/23 15:30
Total Bilirubin 0.6 mg/dl (0.2-1.3) 12/12/23 11:34
AST 37 U/L (14-36) H 12/12/23 11:34
ALT 33 U/L (0-35) 12/12/23 11:34
Alkaline Phosphatase 76 U/L (38-126) 12/12/23 11:34
Most recent labs reviewed.
Micro Results:
12/13/23 02:33 Wound Culture - Final
Abdomen Enterococcus faecalis
Escherichia coli
Pseudomonas aeruginosa
Viridans Streptococcus Group
Gram Stain - Final
12/13/23 02:33 Anaerobic Culture - Final
Colon
12/12/23 14:07 Urine Culture - Final
Urine
Care Review
Plan reviewed with: Physician (Dr Missy diez)
[2023-12-18] MEDS: ROXICODONE 10 MG PO ×2 (11:31→22:18)
--- NOTE | 2023-12-18 12:20 | CM ---
CM following re: discharge planning.
Reviewed pt's chart, met with pt.
Pt is POD #5 ex lap, Green's with rectopexy for perforated diverticulitis, continue supportive care.
PT and OT evaluations noted - home PT/OT recommended. Pt is awre and she stated she sis known to [facility]. A referral to [facility] made.
D/C plan: home with [facility] and family support.
CM will follow with discharge plan updates as hospitalization progresses
[2023-12-18] MEDS: ROXICODONE 5 MG PO (18:02)
[2023-12-18] MEDS: LOVENOX 40 MG SC (18:03)
[2023-12-18] MEDS: SYNTHROID 25 MCG PO (20:57)
[2023-12-19] MEDS: BENADRYL 25 MG IV ×3 (00:13→18:41)
[2023-12-19] MEDS: TUMS 1 TABLET PO ×3 (00:13→22:24)
[2023-12-19 03:07] VITALS: BP 141/71
[2023-12-19] MEDS: ZOSYN 50 IV ×2 (03:17→08:57)
[2023-12-19] MEDS: ROXICODONE 10 MG PO ×4 (04:18→22:24)
[2023-12-19 06:24] LABS: Hemoglobin 11.1 g/dL (12.0-16.0); Mean Corp Hgb Conc. 34.7 g/dL (33.0-37.0); Mean Corpuscular Hgb 28.3 pg (27.0-31.0); Mean Corpuscular Volume 81.6 fL (81.0-99.0); Mean Platelet Volume 9.7 fL (7.4-10.4); Platelet Count 306 10^3/uL (130-400); Red Blood Cell Count 3.92 10^6/uL (4.20-5.40); White Blood Cell Count 7.3 10^3/uL (4.8-10.8)
[2023-12-19 06:57] LABS: Blood Urea Nitrogen 9 mg/dl (7-17); Calcium 9.1 mg/dl (8.4-10.2); Carbon Dioxide 22 mmol/L (22-30); Chloride 105 mmol/L (98-107); Estimated Creatinine Clearance 55 ml/min; Glucose 92 mg/dl (70-99); Potassium 3.4 mmol/L (3.5-5.1); Sodium 137 mmol/L (135-145); eGFR > 60.00
[2023-12-19 07:35] VITALS: BP 138/77
--- NOTE | 2023-12-19 08:41 | W.PN.CRS1 ---
Today's Communication / Plan
-
continue low residue
IV antibiotics
KERRI will be removed prior to d/c
discharge tomorrow/Sat
Assessment/Plan
-
68-year-old female with PMH of PUD, gallstones, HTN, HLD who presented with 1 day of acute abdominal pain, found to have pneumoperitoneum on CT, concerning for perforated viscus, unclear etiology, but possibly colonic
POD #6 ex lap, Green's with rectopexy for perforated diverticulitis
AFVSS
WBC 7.3
� Continue low residue diet
� Pain control with Tylenol, Toradol, oxycodone PRN.
� Cont for DVT ppx with lovenox, TEDS/SCDS
� OOB, encourage IS
� Continue unasyn, appreciate ID
� Appreciate [facility]
� Appreciate hospitalist
- Ancipitate d/c by end of week
- KERRI drain to be removed prior to discharge
Subjective Data
Procedure
12/13/2023 1) exploratory laparotomy 2) Nori's procedure (sigmoidectomy with rectopexy) 3) abdominal washout
Subjective Data
Date of Service: December 19, 2023
Patient states she has been hungry and tolerating a diet. She has some pain but it is controlled. She has no nausea or vomiting. Overall she feels well. She has flatus and bowel function in her stoma bag.
Objective Data
-
Vital Signs
Temp Pulse Resp BP Pulse Ox
98.4 F 59 18 138/77 99
12/19/23 07:35 12/19/23 07:35 12/19/23 07:35 12/19/23 07:35 12/19/23 07:35
Intake & Output
12/18/23 12/19/23 12/20/23
06:59 06:59 06:59
Intake Total 1890 / 1890 1200 / 1200
Output Total
Balance 188 / 1879 1165 / 1165
Intake:
Oral fluids 1060 / 1060 1200 / 1200
IV fluids (Total) 630 / 630
IV piggybacks 200 / 200
Output:
Drain Output (Total)
Right Lower Abdomen Sergey-
Curry
Other:
Number of approximated MODERATE 1 2
amounts of urine
Number of approximated LARGE 5 1
amounts of urine
Lab Results
12/19/23 05:35
12/19/23 05:35
Physical Exam
-
General: No Acute Distress and AOx3
Abdomen: Soft, Non Distended, Tender (mild around drain site) and Other (KERRI drain serousanginous)
Skin: Warm and Dry
Wound: Dressing in Place
[2023-12-19] MEDS: DESENEX/MITRAZOL/ZEASORB 1 APPLIC TOPICAL ×2 (08:57→21:01)
[2023-12-19] MEDS: KCL 40 MEQ PO (08:57)
[2023-12-19] MEDS: PROTONIX 40 MG PO (08:57)
[2023-12-19] MEDS: FLUSH (NSS) 1 FLUSH IV (09:00)
[2023-12-19 10:10] VITALS: BMI 27.0
--- NOTE | 2023-12-19 10:53 | W.PN.HOSP.TC ---
Today's Communication/Plan
-
diet and pain control per GS
Abx per ID
continue stoma teaching
DC in 24-48 hours hopefully
Assessment / Plan
Assessment / Plan
Assessment:
Sepsis, POA, due to perforated viscus:
- CT A/P with PO contrast (done after initial CT A/P with IV contrast): Scattered pneumoperitoneum throughout the abdomen indicating a perforated viscus. The exact location of perforation is difficult to discern. Given that the free air is mostly
located in the upper abdomen, a perforated peptic ulcer would be the primary consideration. Perforated diverticulitis is an alternative consideration, but no clear evidence for acute diverticulitis on this exam.
- s/p Urgent OR 12/12 for exploratory laparotomy, Nori's procedure (sigmoidectomy with rectopexy), abdominal washout. Path pending.
- continue IV Zosyn per ID through 12/20; cultures polymicrobial along with Pseudomonas
- s/p NGT tube, now advancing diet
- continue pain control
- Rehab evaluations/VN setup
- CRS following
Pre-syncope
self reported history of vasovagal syncope
- monitor tele
Suspected heat rash/Milia
- likely from bedsheets, moisture, pressure against sheet/pads
- improving with change of bed sheets to hypoallergenic sheets
- prn Benadryl helpful
- doubtful antibiotic allergy as isolated to posterior skin only (not generalized)
Hyperkalemia
- s/p insulin/D50W
- repeat K+ level improved
Essential hypertension: BP Stable/acceptable at this time
Peptic ulcer disease: Cont PPI
Hypothyroidism: Cont Synthroid
DVT ppx: Lovenox
Code: Full
Anticipated Discharge: 24 - 48 hours
Subjective/Interval History
-
Date of Service: December 19, 2023
denies any new complaints at present
Objective Data
-
Labs:
Laboratory Results
12/19/23
05:35
WBC 7.3
Hgb 11.1 L
Hct 32.0 L
Plt Count 306
Sodium 137
Potassium 3.4 L
Chloride 105
Carbon Dioxide 22
BUN 9
Creatinine 0.9
Glucose 92
Calcium 9.1
Vital Signs:
Vital Signs
Temp Pulse Resp BP Pulse Ox
98.4 F 59 18 138/77 99
12/19/23 07:35 12/19/23 07:35 12/19/23 07:35 12/19/23 07:35 12/19/23 07:35
I&O
12/18/23 12/19/23 12/20/23
06:59 06:59 06:59
Intake Total 1889 1200 / 1200
Output Total 35 / 35
Balance 1879 1165 / 1165
Physical Exam
-
General: No Apparent Distress
HEENT: Normocephalic and Atraumatic
Respiratory: Negative Wheezes
Cardiac: Regular Rhythm
GI: Soft
Musculoskeletal: No Edema
Neuro: AO x 3
Hematologic / Lymphatic: No Lymphadenopathy
Psych: Calm
Data Reviewed
-
Total Time Spent with Patient (in minutes): 44
Labs: Labs Reviewed by me
[2023-12-19 11:09] VITALS: BP 124/71
--- NOTE | 2023-12-19 12:47 | W.PN.ID1 ---
Date of Service
Date of Service: December 19, 2023
Today's Communication
- switch to cipro/metro to complete another 2 days
- follow up with surgery
ID service will no longer actively follow this patient please recall for further questions
Assessment / Plan
Perforated Diverticulitis s/p Hartmanns
Secondary Peritonitis
- milia on the back not a drug rash; rash is from sweating while in the bed
- OR cultures with Pseudomonas which is unusual in additional to more common enterics
- switch to cipro/metro to complete another 2 days
- follow up with surgery
ID service will no longer actively follow this patient please recall for further questions
Chief Complaint
-: Other (secondary peritonitis)
Subjective / Review of Systems
afebrile
bp stable
Vital Signs / Physical Exam
Vital Signs
Vital Signs
Temp Pulse Resp BP Pulse Ox
98.9 F 58 18 124/71 98
12/19/23 11:09 12/19/23 11:09 12/19/23 11:09 12/19/23 11:09 12/19/23 11:09
Physical Exam
Constitutional: No Acute Distress
Cardiovascular: Regular Rate and S1/S2; Negative Murmur or Rub
Pulmonary: Clear and Symmetric; Negative Wheezes or Rales
Gastrointestinal: Soft, Non Tender, Non Distended, Normal Bowel Sounds and Other (stoma pink)
Skin: Warm and Dry; Negative Rash or Jaundice
Objective Data
Lab Data
Lab Results
12/19/23 05:35
12/19/23 05:35
Estimated Creat Clear 55 ml/min 12/19/23 05:35
Lactic Acid Cancelled 12/12/23 15:30
Total Bilirubin 0.6 mg/dl (0.2-1.3) 12/12/23 11:34
AST 37 U/L (14-36) H 12/12/23 11:34
ALT 33 U/L (0-35) 12/12/23 11:34
Alkaline Phosphatase 76 U/L (38-126) 12/12/23 11:34
Most recent labs reviewed.
Micro Results:
12/13/23 02:33 Wound Culture - Final
Abdomen Enterococcus faecalis
Escherichia coli
Pseudomonas aeruginosa
Viridans Streptococcus Group
Gram Stain - Final
12/13/23 02:33 Anaerobic Culture - Final
Colon
12/12/23 14:07 Urine Culture - Final
Urine
[2023-12-19] MEDS: CIPRO 500 MG PO ×2 (13:54→21:01)
[2023-12-19 15:27] VITALS: BP 114/62
[2023-12-19] MEDS: FLAGYL 500 MG PO (17:12)
[2023-12-19] MEDS: LOVENOX 40 MG SC (17:12)
[2023-12-19 19:18] VITALS: BP 108/62
[2023-12-19] MEDS: SYNTHROID 25 MCG PO (22:24)
[2023-12-19 23:02] VITALS: BP 130/74
[2023-12-20] MEDS: FLAGYL 500 MG PO ×4 (00:04→23:42)
[2023-12-20 03:42] VITALS: BP 139/68
[2023-12-20 06:00] VITALS: BMI 27.1
[2023-12-20 07:09] VITALS: BP 134/77
[2023-12-20 07:48] LABS: Hematocrit 33.1 % (37.0-47.0); Hemoglobin 10.9 g/dL (12.0-16.0); Mean Corp Hgb Conc. 32.9 g/dL (33.0-37.0); Mean Corpuscular Hgb 28.1 pg (27.0-31.0); Mean Corpuscular Volume 85.3 fL (81.0-99.0); Mean Platelet Volume 9.7 fL (7.4-10.4); Platelet Count 310 10^3/uL (130-400); Red Blood Cell Count 3.88 10^6/uL (4.20-5.40); Red Cell Dist. Width 14.3 % (11.5-14.5); White Blood Cell Count 7.2 10^3/uL (4.8-10.8)
--- NOTE | 2023-12-20 08:05 | CM ---
patient is sp iraheta's procedure,iv abx changed to po cipro/flagyl,advancing diet,therapy workign with patient[facility]
[2023-12-20 08:33] LABS: Blood Urea Nitrogen 9 mg/dl (7-17); Calcium 9.3 mg/dl (8.4-10.2); Carbon Dioxide 28 mmol/L (22-30); Chloride 105 mmol/L (98-107); Estimated Creatinine Clearance 50 ml/min; Glucose 92 mg/dl (70-99); Potassium 4.4 mmol/L (3.5-5.1); Sodium 137 mmol/L (135-145); eGFR > 60.00
--- NOTE | 2023-12-20 08:34 | W.PN.HOSP.TC ---
Today's Communication/Plan
-
DC planning
Assessment / Plan
Assessment / Plan
Assessment:
Sepsis, POA, due to perforated viscus:
- CT A/P with PO contrast (done after initial CT A/P with IV contrast): Scattered pneumoperitoneum throughout the abdomen indicating a perforated viscus. The exact location of perforation is difficult to discern. Given that the free air is mostly
located in the upper abdomen, a perforated peptic ulcer would be the primary consideration. Perforated diverticulitis is an alternative consideration, but no clear evidence for acute diverticulitis on this exam.
- s/p Urgent OR 12/12 for exploratory laparotomy, Nori's procedure (sigmoidectomy with rectopexy), abdominal washout. Path pending.
- continue Cipro/Flagyl through 12/20; cultures polymicrobial along with Pseudomonas
- s/p NGT tube, now on low residue diet
- continue pain control
- Rehab evaluations/VN setup
- CRS following
Pre-syncope
self reported history of vasovagal syncope
- monitor tele
Suspected heat rash/Milia
- likely from bedsheets, moisture, pressure against sheet/pads
- improving with change of bed sheets to hypoallergenic sheets
- prn Benadryl helpful
- doubtful antibiotic allergy as isolated to posterior skin only (not generalized)
Hyperkalemia
- s/p insulin/D50W
- repeat K+ level improved
- prn K+ for hypokalemia
Essential hypertension: BP Stable/acceptable at this time
Peptic ulcer disease: Cont PPI
Hypothyroidism: Cont Synthroid
Sore throat
- symptomatic control
- doubt acute bacterial process with recent coverage with broad spectrum Abx
DVT ppx: Lovenox
Code: Full
Anticipated Discharge: Within 24 hours
Subjective/Interval History
-
Date of Service: December 20, 2023
reports some mild sore throat and ear fullness
no fever/chills or other complaints such as cough
tolerating diet
Objective Data
-
Labs:
Laboratory Results
12/20/23
07:09
WBC 7.2
Hgb 10.9 L
Hct 33.1 L
Plt Count 310
Sodium 137
Potassium 4.4 D
Chloride 105
Carbon Dioxide 28
BUN 9
Creatinine 1.0
Glucose 92
Calcium 9.3
Vital Signs:
Vital Signs
Temp Pulse Resp BP Pulse Ox
98.4 F 62 14 134/77 100
12/20/23 07:09 12/20/23 07:09 12/20/23 07:09 12/20/23 07:09 12/20/23 07:09
I&O
12/19/23 12/20/23 12/21/23
06:59 06:59 06:59
Intake Total 1200 / 1200 1730 / 1730
Output Total 35 / 35 370 / 370
Balance 1165 / 1165 1360 / 1360
Physical Exam
-
General: No Apparent Distress
HEENT: Normocephalic and Atraumatic
Respiratory: Negative Wheezes
Cardiac: Regular Rhythm and S1/S2
GI: Soft, Nontender and Ostomy
Genito-urinary: No Costovertebral Tender
Musculoskeletal: No Edema
Neuro: AO x 3
Hematologic / Lymphatic: No Lymphadenopathy
Psych: Calm
Data Reviewed
-
Total Time Spent with Patient (in minutes): 45
Labs: Labs Reviewed by me
[2023-12-20] MEDS: PROTONIX 40 MG PO (08:43)
[2023-12-20] MEDS: CIPRO 500 MG PO ×2 (08:43→20:29)
[2023-12-20] MEDS: DESENEX/MITRAZOL/ZEASORB 1 APPLIC TOPICAL ×2 (08:44→20:29)
--- NOTE | 2023-12-20 09:11 | W.PN.CRS1 ---
Today's Communication / Plan
-
okay for dispo from our standpoint when medically cleared
becca drain removed
f/u in 2 weeks
finish course of abx
Assessment/Plan
-
68-year-old female with PMH of PUD, gallstones, HTN, HLD who presented with 1 day of acute abdominal pain, found to have pneumoperitoneum on CT, concerning for perforated viscus, unclear etiology, but possibly colonic
POD #7 ex lap, Green's with rectopexy for perforated diverticulitis
AFVSS
WBC 7.2
� Continue low residue diet
� Pain control with Tylenol, Toradol, oxycodone PRN.
� Cont for DVT ppx with lovenox, TEDS/SCDS
� OOB, encourage IS
� Continue unasyn, appreciate ID
� Appreciate [facility]
� Appreciate hospitalist
- Ancipitate d/c by end of week
- BECCA drain removed
- Okay for discharge when medically able from our standpoint.
Subjective Data
Procedure
12/13/2023 1) exploratory laparotomy 2) Nori's procedure (sigmoidectomy with rectopexy) 3) abdominal washout
Subjective Data
Date of Service: December 20, 2023
Patient states she feels well. Her pain is controlled. She has no nausea or vomiting. She is toelrating a diet.
Objective Data
-
Vital Signs
Temp Pulse Resp BP Pulse Ox
98.4 F 62 14 134/77 100
12/20/23 07:09 12/20/23 07:09 12/20/23 07:09 12/20/23 07:09 12/20/23 07:09
Intake & Output
12/19/23 12/20/23 12/21/23
06:59 06:59 06:59
Intake Total 1200 / 1200 1730 / 1730
Output Total 35 / 35 370 / 370
Balance 1165 / 1165 1360 / 1360
Intake:
Oral fluids 1200 / 1200 1680 / 1680
IV piggybacks 50 / 50
Output:
Liquid stool amount 340 / 340
Rectum 340 / 340
Drain Output (Total) 30
Right Lower Abdomen Sergey-
Curry
Other:
Number of approximated MODERATE 2 4 1
amounts of urine
Number of approximated LARGE 1
amounts of urine
Lab Results
12/20/23 07:09
12/20/23 07:09
Physical Exam
-
General: No Acute Distress and AOx3
Abdomen: Soft, Non Distended, Non Tender and Other (becca drain serous)
Skin: Warm
--- NOTE | 2023-12-20 09:35 | CM ---
Patient seen at bedside. Per Patient she will be discharged tomorrow. Patient given IMM and signed form placed on chart. Patient states that she anticipates going home with family and [facility] has accepted her to follow at discharge. CM will continue to
follow for discharge planning needs.
Plan; home with [facility] to follow
[2023-12-20] MEDS: ROXICODONE 10 MG PO ×2 (09:39→22:39)
[2023-12-20] MEDS: TUMS 1 TABLET PO ×3 (09:39→22:39)
--- NOTE | 2023-12-20 13:01 | WOUNDNOTE ---
[facility] RN NOTE: Followed up today for appliance change and teaching session. Plan is for discharge tomorrow. Patient states she has been emptying pouch and feels comfortable doing so. Stoma is pink and budded, peristomal skin intact. Reviewed ADL's
with a pouch. Answered all questions, reminding patient she can visit technology consultant at [facility] if problems arise. Called [facility] for additional supplies for discharge. FLO [place] given update. Will follow as needed.
[2023-12-20 15:15] VITALS: BP 125/69
[2023-12-20 16:13] VITALS: BP 143/73; PULSE 83; O2SAT 100
[2023-12-20] MEDS: LOVENOX 40 MG SC (17:18)
[2023-12-20] MEDS: BENADRYL 25 MG IV (17:18)
[2023-12-20] MEDS: SYNTHROID 25 MCG PO (20:29)
[2023-12-20 23:34] VITALS: BP 146/75
[2023-12-21 06:00] VITALS: BMI 27.0
[2023-12-21 07:10] VITALS: BP 143/73
[2023-12-21 07:33] LABS: Hematocrit 33.4 % (37.0-47.0); Hemoglobin 11.3 g/dL (12.0-16.0); Mean Corp Hgb Conc. 33.8 g/dL (33.0-37.0); Mean Corpuscular Hgb 28.6 pg (27.0-31.0); Mean Corpuscular Volume 84.6 fL (81.0-99.0); Mean Platelet Volume 9.8 fL (7.4-10.4); Platelet Count 326 10^3/uL (130-400); Red Blood Cell Count 3.95 10^6/uL (4.20-5.40); Red Cell Dist. Width 14.2 % (11.5-14.5); White Blood Cell Count 8.1 10^3/uL (4.8-10.8)
[2023-12-21 07:47] LABS: Blood Urea Nitrogen 11 mg/dl (7-17); Calcium 9.7 mg/dl (8.4-10.2); Carbon Dioxide 29 mmol/L (22-30); Chloride 104 mmol/L (98-107); Estimated Creatinine Clearance 55 ml/min; Glucose 95 mg/dl (70-99); Potassium 4.7 mmol/L (3.5-5.1); Sodium 139 mmol/L (135-145); eGFR > 60.00
[2023-12-21] MEDS: DESENEX/MITRAZOL/ZEASORB 1 APPLIC TOPICAL (08:39)
[2023-12-21] MEDS: CIPRO 500 MG PO ×2 (08:39→16:44)
[2023-12-21] MEDS: PROTONIX 40 MG PO (08:39)
[2023-12-21] MEDS: FLAGYL 500 MG PO ×2 (08:39→16:44)
[2023-12-21] MEDS: TUMS 1 TABLET PO (08:43)
[2023-12-21] MEDS: ROXICODONE 10 MG PO ×2 (08:43→17:48)
--- NOTE | 2023-12-21 09:08 | W.PN.GS2 ---
Addendum entered and electronically signed by Russel Reynaga MD 12/21/23 14:25:
Patient seen and examined this morning with nurse practitioner. Agree with documented progress note.
Doing well with her postoperative recovery.
Tolerating diet, ostomy functioning.
Stable for discharge home
Original Note:
Today's Communication / Plan
-
Dispo planning
Assessment / Plan
-
68 yo female presenting with perforated diverticulitis now POD #8 Nori's
AFVSS
Tolerating diet
Labs stable
--Continue LRD
--Pain control with Tylenol, Toradol, oxycodone PRN.
� Cont for DVT ppx with lovenox, TEDS/SCDS
� OOB, encourage IS
� ABX as per ID (cipro/flagyl)
� [facility] following for ostomy teaching
- Okay for discharge from surgical standpoint
Subjective Data
-
Date of Service: December 21, 2023
Patient seen and examined at bedside. Denies n/v. Tolerating diet. Notes some rectal discomfort. Passing stool/flatus via stoma with no rectal drainage.
Objective Data
-
Intake and Output
12/20/23 12/21/23 12/22/23
06:59 06:59 06:59
Intake Total 1730 / 1730 1680 / 1680
Output Total 370 / 370
Balance 1360 / 1360 1680 / 1680
Intake:
Oral fluids 1680 / 1680 1680 / 1680
IV piggybacks 50 / 50
Output:
Liquid stool amount 340 / 340
Rectum 340 / 340
Drain Output (Total) 30 / 30
Right Lower Abdomen Sergey- 30 / 30
Curry
Other:
Number of approximated MODERATE 4 3
amounts of urine
Vital Signs
Temp Pulse Resp BP Pulse Ox
99.1 F 65 16 143/73 97
12/21/23 07:10 12/21/23 07:10 12/21/23 07:10 12/21/23 07:10 12/21/23 07:10
Lab Results
12/21/23 06:40
12/21/23 06:40
Calcium 9.7 mg/dl (8.4-10.2) 12/21/23 06:40
Magnesium 2.1 mg/dl (1.6-2.3) 12/13/23 05:49
Total Bilirubin 0.6 mg/dl (0.2-1.3) 12/12/23 11:34
AST 37 U/L (14-36) H 12/12/23 11:34
ALT 33 U/L (0-35) 12/12/23 11:34
Alkaline Phosphatase 76 U/L (38-126) 12/12/23 11:34
Total Protein 6.8 g/dl (6.3-8.2) 12/12/23 11:34
Albumin 4.1 g/dl (3.5-5.0) 12/12/23 11:34
Physical Exam
-
NAD
ABD soft, nt, nd. Stoma pink/viable with stool/flatus in appliance
Lap incisions with intact glue and well approximated. Prior KERRI site with intact dressing.
--- NOTE | 2023-12-21 11:16 | W.PN.HOSP.TC ---
Today's Communication/Plan
-
dc to home/VN today
Assessment / Plan
Assessment / Plan
Assessment:
Sepsis, POA, due to perforated viscus:
- CT A/P with PO contrast (done after initial CT A/P with IV contrast): Scattered pneumoperitoneum throughout the abdomen indicating a perforated viscus. The exact location of perforation is difficult to discern. Given that the free air is mostly
located in the upper abdomen, a perforated peptic ulcer would be the primary consideration. Perforated diverticulitis is an alternative consideration, but no clear evidence for acute diverticulitis on this exam.
- s/p Urgent OR 12/12 for exploratory laparotomy, Nori's procedure (sigmoidectomy with rectopexy), abdominal washout. Path pending.
- completed Cipro/Flagyl course today before discharge; cultures polymicrobial along with Pseudomonas
- s/p NGT tube, now on low residue diet
- continue pain control
- Rehab evaluations/VN setup
- CRS follow uo outpatient
Pre-syncope
self reported history of vasovagal syncope
- monitor tele
Suspected heat rash/Milia
- likely from bedsheets, moisture, pressure against sheet/pads
- improving with change of bed sheets to hypoallergenic sheets
- prn Benadryl helpful
- doubtful antibiotic allergy as isolated to posterior skin only (not generalized)
Hyperkalemia
- s/p insulin/D50W
- repeat K+ level improved
- prn K+ for hypokalemia
Essential hypertension: BP Stable/acceptable at this time
Peptic ulcer disease: Cont PPI
Hypothyroidism: Cont Synthroid
Sore throat
- symptomatic control
- doubt acute bacterial process with recent coverage with broad spectrum Abx
- instructed patient to follow up with PCP if ongoing sore throat
DVT ppx: Lovenox
Code: Full
More than 30 minutes spent in discharge including
Final examination of the patient
Summarizing hospital stay
Instructions for continuing care to all relevant caregivers
Preparation of discharge records, prescriptions, and referral forms
Total time spent (in minutes): 41
Anticipated Discharge: Today
Subjective/Interval History
-
Date of Service: December 21, 2023
no new complaints
Objective Data
-
Labs:
Laboratory Results
12/21/23
06:40
WBC 8.1
Hgb 11.3 L
Hct 33.4 L
Plt Count 326
Sodium 139
Potassium 4.7
Chloride 104
Carbon Dioxide 29
BUN 11
Creatinine 0.9
Glucose 95
Calcium 9.7
Vital Signs:
Vital Signs
Temp Pulse Resp BP Pulse Ox
99.1 F 65 16 143/73 97
12/21/23 07:10 12/21/23 07:10 12/21/23 07:10 12/21/23 07:10 12/21/23 07:10
I&O
12/20/23 12/21/23 12/22/23
06:59 06:59 06:59
Intake Total 1730 / 1730 1680 / 1680
Output Total 370 / 370
Balance 1360 / 1360 1680 / 1680
Physical Exam
-
General: No Apparent Distress
HEENT: Normocephalic and Atraumatic
Respiratory: Negative Wheezes
Cardiac: Regular Rhythm and S1/S2
GI: Soft and Nontender
Genito-urinary: No Costovertebral Tender
Neuro: AO x 3
Hematologic / Lymphatic: No Lymphadenopathy
Psych: Calm
Data Reviewed
-
Total Time Spent with Patient (in minutes): 42
Labs: Labs Reviewed by me
--- NOTE | 2023-12-21 11:26 | W.DS.TRANS ---
DC Summary - [employer]
-
Discharge Instructions:
Discharge Diagnosis/Procedures sepsis due to perforated bowel s/p 12/12 for
exploratory laparotomy, Nori's procedure (
sigmoidectomy with rectopexy), abdominal washout
. Antibiotics completed.
Diet Low Residue
Activity No strenuous activity
Additional Activity No lifting over 10lbs (gallon of milk)
Driving Restrictions Not until seen by your Dr
Bathing Restrictions OK to Shower
Other Services VN
Wound Care [place] will be removed at your office
appointment with colorectal surgery.
Instructions: Low Fiber Diet
Stand-Alone Forms:
Changes to Home Medications: No
Discharge Medications:
DC Medications w/original date entered in [facility]
SELENIUM 1 tab PO DAILY Supplement 07/23/10
ascorbic acid (vitamin C) 500 mg tablet (Vitamin C) 500 mg PO DAILY Supplement 07/23/10
aspirin 325 mg tablet,delayed release 325 mg PO HS Blood Clot Prevention/Tx 07/23/10
biotin 1 mg tablet 1 mg PO DAILY Supplement 07/23/10
docosahexaenoic acid (dha)-epa 120 mg-180 mg capsule 1 cap PO DAILY Supplement 07/23/10
multivitamin with folic acid 400 mcg tablet (Tab-A-Jade) 1 tab PO DAILY Supplement 07/23/10
sertraline 50 mg tablet 50 mg PO HS Depression 07/23/10
omeprazole 40 mg capsule,delayed release 40 mg PO DAILY #20 caps 08/04/22
apple cider vinegar 300 mg tablet 300 mg PO DAILY Supplement 12/12/23
calcium carbonate (Calcium 600) 600 mg PO DAILY Supplement 12/12/23
coenzyme Q10 100 mg capsule (CoQ-10) 100 mg PO DAILY Supplement 12/12/23
famotidine 40 mg tablet 40 mg PO DAILY Gastrointestinal Issue 12/12/23
garlic 200 mg tablet 200 mg PO DAILY Supplement 12/12/23
levothyroxine 25 mcg tablet 25 mcg PO HS Thyroid 12/12/23
omega 6-wbf-thm-fish oil 1,000 mg (120 mg-180 mg) capsule (Fish Oil) 1 cap PO DAILY Supplement 12/12/23
oxycodone 5 mg tablet 5 mg PO Q4HPRN PRN moderate pain #20 tabs 12/21/23
Home Medication Changes
Pending Results: No
Total time spent discharging patient (in min): 42
--- NOTE | 2023-12-21 11:33 | CM ---
Reviewed the chart notes. Patient being discharged to home today. Spouse to provide transportation.
Plan: Discharge to home with [facility] services.
[2023-12-21] MEDS: FLUSH (NSS) 2 FLUSH IV (13:00)
[2023-12-21] MEDS: BENADRYL 25 MG IV (13:00)
[2023-12-21 15:45] VITALS: BP 137/66
== END 2023-12-21 18:39 | disposition home health service (06) | DRG 853 ==
LOC: 2 SOUTH 15:12
PROVIDERS: Physician Assistant Medical; Surgery; ADMITTING PHYSICIAN Internal Medicine; ATTENDING PHYSICIAN Internal Medicine; CONSULT PHYSICIAN Student in an Organized Health Care Education/Training Program; CONSULT PHYSICIAN Surgery; EMERGENCY PHYSICIAN Emergency Medicine; FAMILY PHYSICIAN Family Medicine
PROC: 0DBN0ZZ Excision of Sigmoid Colon, Open Approach (ICD-10-PCS; 2023-12-13)
PROC: 0D1N0Z4 Bypass Sigmoid Colon to Cutaneous, Open Approach (ICD-10-PCS; 2023-12-13)
DX: A41.9 Sepsis, unspecified organism (principal); K65.9 Peritonitis, unspecified; K57.20 Diverticulitis of large intestine with perforation and abscess without bleeding; I10 Essential (primary) hypertension; E03.9 Hypothyroidism, unspecified; K21.9 Gastro-esophageal reflux disease without esophagitis; K80.20 Calculus of gallbladder without cholecystitis without obstruction; E87.5 Hyperkalemia; J02.8 Acute pharyngitis due to other specified organisms; E78.5 Hyperlipidemia, unspecified; K27.9 Peptic ulcer, site unspecified, unspecified as acute or chronic, without hemorrhage or perforation; R55 Syncope and collapse; B96.5 Pseudomonas (aeruginosa) (mallei) (pseudomallei) as the cause of diseases classified elsewhere; L74.0 Miliaria rubra; Z86.711 Personal history of pulmonary embolism; Z86.010 Personal history of colon polyps; Z98.2 Presence of cerebrospinal fluid drainage device; Z79.890 Hormone replacement therapy; Z79.899 Other long term (current) drug therapy; Z88.1 Allergy status to other antibiotic agents; Z91.040 Latex allergy status
CPT/HCPCS: 88307; 74176; 74177; 80048; 80053; 81003; 81015; 82962; 83605; 83690; 83735; 84132; 85025; 85027; 86803; 87070; 87075; 87077; 87086; 87186; 87205; 93005; 96361; 96365; 96375; 96376; 97116; 97163; 97530; 99285; C1776; Q9967

== ENCOUNTER 2024-01-30 11:08 | Emergency (ER) | payer OTHER, SELFPAY ==
[2024-01-30] VITALS (9 sets, daily range): BP systolic 125–148; BP diastolic 69–90; BMI 26.2
[2024-01-30 11:59] LABS: % Basophils 1.1 % (0-2); % Eosinophils 3.9 % (0-6); % Immature Granulocytes 0.2 % (0-0.5); % Lymphocytes 33.8 % (20.5-51.1); % Monocytes 10.6 % (1.7-9.3); % Neutrophils 50.4 % (42.2-75.2); Absolute Basophils 0.1 10^3/uL (0-0.2); Absolute Eosinophils 0.2 10^3/uL (0-0.7); Absolute Lymphocytes 1.9 10^3/uL (1.2-3.4); Absolute Monocytes 0.6 10^3/uL (0.1-0.6); Absolute Neutrophils 2.8 10^3/uL (1.4-6.5); Hematocrit 35.9 % (37.0-47.0); Mean Corp Hgb Conc. 33.4 g/dL (33.0-37.0); Mean Corpuscular Hgb 27.2 pg (27.0-31.0); Mean Corpuscular Volume 81.4 fL (81.0-99.0); Mean Platelet Volume 9.6 fL (7.4-10.4); Nucleated Red Blood Cells % 0 %; Platelet Count 335 10^3/uL (130-400); Red Blood Cell Count 4.41 10^6/uL (4.20-5.40); Red Cell Dist. Width 13.5 % (11.5-14.5); White Blood Cell Count 5.6 10^3/uL (4.8-10.8)
[2024-01-30 12:11] LABS: ALT (SGPT) 22 U/L (0-35); AST (SGOT) 28 U/L (14-36); Albumin 4.3 g/dl (3.5-5.0); Alkaline Phosphatase 83 U/L (38-126); Blood Urea Nitrogen 15 mg/dl (7-17); Calcium 10.3 mg/dl (8.4-10.2); Carbon Dioxide 24 mmol/L (22-30); Chloride 103 mmol/L (98-107); Estimated Creatinine Clearance 57 ml/min; Glucose 99 mg/dl (70-99); Lipase 135 U/L (23-300); Potassium 4.3 mmol/L (3.5-5.1); Sodium 139 mmol/L (135-145); Total Bilirubin 0.4 mg/dl (0.2-1.3); Total Protein 7.3 g/dl (6.3-8.2); eGFR > 60.00
[2024-01-30] MEDS: OMNIPAQUE 50 ML PO (12:29)
--- NOTE | 2024-01-30 12:46 | ED.GENMED ---
History of Present Illness
<Lisa Richmond DO - Last Filed: 02/03/24 11:15>
General
Chief Complaint: Abdominal Pain
Time Seen by Provider: 01/30/24 11:34
History of Present Illness
History of Present Illness:
68-year-old female with recent history of perforated diverticulitis 12/11 status postsurgery with ostomy placement presenting to the emergency department for lower abdominal pain. Patient reports symptoms started few days ago. She checked her heart
rate yesterday, noted that it was elevated as well as her blood pressure. Denies any vomiting. Has had some slight increased output from her ostomy. Denies fever, chest pain, difficulty breathing. Denies any prior history of abdominal surgeries
in the past. Denies additional acute medical complaints
Past History
<Lisa Richmond DO - Last Filed: 02/03/24 11:15>
Past History
ED Past Medical History: HTN, Hypothyroidism, Other (Gastric ulcer) and Other (Patient has a history of pulmonary embolism years ago and she is on control)
ED Past Surgical History: None
Patient has exhibited threatening behavior?: No
PSI?: No
Social History
Tobacco: Non-smoker
Alcohol: None
Drug: None
Personal:
Living: with family
Employment: Employed
Phy Exam
<Lisa Richmond DO - Last Filed: 02/03/24 11:15>
Physical Exam
Physical Exam:
General: Well-appearing, no clinical signs of dehydration, nontoxic and in no acute distress
HEENT: protecting airway
Neck: appears supple
CV: Normal heart rate, regular rhythm
Resp: No accessory muscle use, no increased work of breathing, lungs clear to auscultation bilaterally
Abd: Soft and non-distended, ostomy normal in appearance with soft stool output, generalized tenderness around ostomy site without rebound or guarding
Extremities: No deformities, no swelling
Neuro: alert, no focal neurologic deficit
: deferred
Rectal: deferred
Psych: Normal affect
Skin: Intact
Course
<Lisa Richmond DO - Last Filed: 02/03/24 11:15>
Orders/Labs/Results
Orders:
Orders
01/30/24 11:34
Electrocardiogram (*1) Urgent
Reason for Study: Abdominal Pain
01/30/24 11:35
EKG- Treatment ONCE
01/30/24 11:38
Complete Blood Count/With Diff Urgent
Comprehensive Metabolic Panel Urgent
Lipase Urgent
01/30/24 12:04
CT Abd/pel W Iv And Oral Contr Urgent
Comment:
Reason For Exam: pain around ostomy, hx perf diverticulitis
Iohexol [Omnipaque] See Protocol PO NOW STA
01/30/24 19:15
Amoxicillin 875 mg/Clav 125 mg [Augmentin 875 mg/125 mg] 1 tablet PO NOW STA
Abnormal Lab Results
01/30/24
11:38
Hct 35.9 L %
(37.0-47.0)
Monocytes % 10.6 H %
(1.7-9.3)
Calcium 10.3 H mg/dl
(8.4-10.2)
01/30/24 11:38
01/30/24 11:38
Vital Signs
Initial and Last Documented VS:
Initial Vital Signs
Temp Pulse Resp BP Pulse Ox
98.2 F 88 16 140/90 98
01/30/24 11:12 01/30/24 11:12 01/30/24 11:12 01/30/24 11:12 01/30/24 11:12
Last Documented Vital Signs
Temp Pulse Resp BP Pulse Ox
98.2 F 68 16 140/77 98
01/30/24 11:12 01/30/24 19:15 01/30/24 19:15 01/30/24 19:00 01/30/24 18:45
<Evaristo Antonio MD - Last Filed: 01/30/24 19:26>
Orders/Labs/Results
Orders:
Orders
01/30/24 11:34
Electrocardiogram (*1) Urgent
Reason for Study: Abdominal Pain
01/30/24 11:35
EKG- Treatment ONCE
01/30/24 11:38
Complete Blood Count/With Diff Urgent
Comprehensive Metabolic Panel Urgent
Lipase Urgent
01/30/24 12:04
CT Abd/pel W Iv And Oral Contr Urgent
Comment:
Reason For Exam: pain around ostomy, hx perf diverticulitis
Iohexol [Omnipaque] See Protocol PO NOW STA
01/30/24 19:15
Amoxicillin 875 mg/Clav 125 mg [Augmentin 875 mg/125 mg] 1 tablet PO NOW STA
Abnormal Lab Results
01/30/24
11:38
Hct 35.9 L %
(37.0-47.0)
Monocytes % 10.6 H %
(1.7-9.3)
Calcium 10.3 H mg/dl
(8.4-10.2)
01/30/24 11:38
01/30/24 11:38
Vital Signs
Initial and Last Documented VS:
Initial Vital Signs
Temp Pulse Resp BP Pulse Ox
98.2 F 88 16 140/90 98
01/30/24 11:12 01/30/24 11:12 01/30/24 11:12 01/30/24 11:12 01/30/24 11:12
Last Documented Vital Signs
Temp Pulse Resp BP Pulse Ox
98.2 F 68 16 140/77 98
01/30/24 11:12 01/30/24 19:15 01/30/24 19:15 01/30/24 19:00 01/30/24 18:45
<Lisa Richmond DO - Last Filed: 02/03/24 11:15>
MDM/Problems Addressed
MDM/Problems Addressed:
68-year-old female with prior history of perforated diverticulitis status post ostomy placement 12/11 presenting for lower abdominal pain. Vital signs on arrival are normal.
On exam, patient is well-appearing, nontoxic with benign cardiac and pulmonary exam. On abdominal exam, mild generalized tenderness around ostomy site without distention/guarding. Low suspicion for serious intra-abdominal process or infection,
hemodynamically stable. However, given recent surgical intervention and symptoms, plan for laboratory analysis and CT abdominal imaging for rule out acute process.
14:00 -patient's labs are unremarkable. Patient signed out to incoming physician, pending CT imaging and ultimate disposition
<Lisa Richmond DO - Last Filed: 02/03/24 11:15>
*Critical Care Note
Total Time (30-74mins, 75-104mins- exclusive of procedures): Not Applicable
<Evaristo nAtonio MD - Last Filed: 01/30/24 19:26>
*Radiology
Radiology exam reviewed: radiology read reviewed (Inflammatory stranding around the ostomy)
<Evaristo Antonio MD - Last Filed: 01/30/24 19:26>
Update Note
Update Note:
1914... Seen by colorectal. Agree with Augmentin twice daily x 10 days and follow-up. On exam patient is nontoxic in no distress. Abdomen is soft and nontender. Mild tenderness 9:00 to 12:00 ROCKY ostomy. However no inflammation. Ostomy appears
well pink. Functioning well.
ED Attending Note
<Lisa Richmond DO - Last Filed: 02/03/24 11:15>
-
Portions of this chart may have been created with voice recognition software.� Occasional wrong word or��sound alike� substitutions may have occurred due to the inherent limitations of voice recognition software.
Discharge Plan
Departure
Patient Disposition: Home (Routine Discharge)
Date of Disposition: 01/30/24
Time of Disposition: 19:19
Patient with high blood pressure during this ER visit?: Yes
Discharge Problem:
Abdominal pain, ROCKY ostomy inflammatory changes
Instructions: Abdominal Pain, BLOOD PRESSURE
Prescriptions:
New
amoxicillin-pot clavulanate 875-125 mg tablet
1 tab PO BID Qty: 20 0RF
No Action
ascorbic acid (vitamin C) [Vitamin C] 500 MG tablet
500 mg PO DAILY
aspirin 325 MG tablet,delayed release (DR/EC)
325 mg PO HS
sertraline 50 MG tablet
50 mg PO HS
docosahexaenoic acid-epa 1 CAP capsule
1 cap PO DAILY
biotin 1 MG tablet
1 mg PO DAILY
multivitamin with folic acid [Tab-A-Jade] 1 TABLET tablet
1 tab PO DAILY
SELENIUM
1 tab PO DAILY
omeprazole 40 mg capsule,delayed release(DR/EC)
40 mg PO DAILY Qty: 20 0RF
levothyroxine 25 mcg Tablet
25 mcg PO HS
Patient Comments:
12/12/23: patient states she takes at bedtime many hour after dinner, as it works better for her stomach. States the new time was approved by doctor.
calcium carbonate [Calcium 600] 600 mg calcium (1,500 mg) Tablet
600 mg PO DAILY
coenzyme Q10 [CoQ-10] 100 mg Capsule
100 mg PO DAILY
apple cider vinegar 300 mg Tablet
300 mg PO DAILY
omega 4-rka-bwf-fish oil [Fish Oil] 1,000 mg (120 mg-180 mg) Capsule
1 cap PO DAILY
garlic 200 mg Tablet
200 mg PO DAILY
famotidine 40 mg Tablet
40 mg PO DAILY
oxycodone 5 mg Tablet
5 mg PO Q4HPRN PRN (Reason: moderate pain) Qty: 20 0RF
Referrals:
Evaristo Montez MD [Family Provider] - Follow up in 2-3 days
Activity Restrictions/Additional Instructions:
Your prescription was sent to your pharmacy
Follow-up as per Dr. Youssef
Return sooner with increased pain, fever, issues with urostomy or any other concerning symptoms
Interventions
Interventions:
*Risk Screen - Suicide Last Done: 01/30/24 11:32
*General Assessment Last Done: 01/30/24 11:32
*Neglect/Abuse Screening Last Done: 01/30/24 11:32
ED- Fall Risk Assessment Last Done: 01/30/24 11:32
*ED COVID-19 Vaccine History Last Done: 01/30/24 11:32
*Nursing Disposition Last Done: 01/30/24 19:40
CT-Ybeqnr-Mmhkcgrecp Assessment Last Done: 01/30/24 11:32
Discharge Date and Time
Discharge Date/Time: 01/30/24 19:40
Print Language: INDONESIAN
--- NOTE | 2024-01-30 19:11 | CON.MD ---
Consultation - Medical
-
Full consult to be dictated.
History, vitals, labs, imaging reviewed. Patient seen and examined.
68-year-old female well-known to me who is now about 6 weeks status post urgent Nori resection for perforated sigmoid diverticulitis. She came into the ER today with 3 days of increasing ROCKY stoma/left-sided abdominal discomfort. Denies
fevers chills nausea or vomiting. Admits her heart rate and blood pressure may have been fluctuating at home although details are unclear. Blood work and vitals are completely normal in the ER. CT scan abdomen pelvis was performed and the images
and report available for review. This reveals some fat stranding of the pericolonic fat at the stoma site. No free air or abscess or bowel wall thickening noted. No pneumatosis coli. No hernia noted. On exam she has mild to moderate localized
tenderness to that area. No peritoneal signs or guarding. I suspect this is either epiploic appendagitis or perhaps, less likely, recurrent localized uncomplicated diverticulitis. Either way, she is tolerating a diet, is not an extremis, and her
vitals and labs are normal. I believe this will improve with time. I believe it is reasonable to discharge her on a 10-day course of Augmentin. I asked her to restrict her diet to clears for day then soft for day then low residue thereafter. I
asked her to call if there is any issues or concerns. She was comfortable with these recommendations. She is due to follow-up with me in the office in February.
Thanks.
[2024-01-30] MEDS: AUGMENTIN 875 MG/125 MG 1 TABLET PO (19:23)
== END 2024-01-30 19:40 | disposition home or self-care (01) ==
LOC: EMR 11:08
PROVIDERS: Physician Assistant; EMERGENCY PHYSICIAN Student in an Organized Health Care Education/Training Program; FAMILY PHYSICIAN Family Medicine
DX: T85.79XA Infection and inflammatory reaction due to other internal prosthetic devices, implants and grafts, initial encounter (principal); T75.89XA Other specified effects of external causes, initial encounter; R10.30 Lower abdominal pain, unspecified; I10 Essential (primary) hypertension; E03.9 Hypothyroidism, unspecified; Z86.711 Personal history of pulmonary embolism; Z93.3 Colostomy status; Z79.3 Long term (current) use of hormonal contraceptives
CPT/HCPCS: 99284; 74177; 80053; 83690; 85025; 93005; Q9967

== ENCOUNTER → 2024-06-02 18:13 | Outpatient (REF) | payer OTHER, SELFPAY | LOC: WDC 18:13 | PROVIDERS: ATTENDING PHYSICIAN Family Medicine | DX: Z12.31 Encounter for screening mammogram for malignant neoplasm of breast (principal) | CPT/HCPCS: 77063; 77067 ==

== ENCOUNTER 2024-06-11 06:08 | Inpatient (IN) | payer OTHER, SELFPAY ==
[2024-06-03 13:46] VITALS: BMI 26.7
[2024-06-03 14:39] LABS: Hematocrit 35.2 % (37.0-47.0); Hemoglobin 11.3 g/dL (12.0-16.0); Mean Corp Hgb Conc. 32.1 g/dL (33.0-37.0); Mean Corpuscular Hgb 26.5 pg (27.0-31.0); Mean Corpuscular Volume 82.6 fL (81.0-99.0); Mean Platelet Volume 9.8 fL (7.4-10.4); Platelet Count 258 10^3/uL (130-400); Red Blood Cell Count 4.26 10^6/uL (4.20-5.40); White Blood Cell Count 4.4 10^3/uL (4.8-10.8)
[2024-06-03 14:51] LABS: APTT 29.1 Sec (23.4-35.0); INR 0.97; PT 13.4 Sec (11.4-14.6)
[2024-06-03 15:07] LABS: ALT (SGPT) 23 U/L (0-35); AST (SGOT) 28 U/L (14-36); Albumin 4.3 g/dl (3.5-5.0); Alkaline Phosphatase 85 U/L (38-126); Blood Urea Nitrogen 10 mg/dl (7-17); Calcium 9.6 mg/dl (8.4-10.2); Carbon Dioxide 26 mmol/L (22-30); Chloride 102 mmol/L (98-107); Estimated Creatinine Clearance 50 ml/min; Glucose 87 mg/dl (70-99); Potassium 4.8 mmol/L (3.5-5.1); Sodium 138 mmol/L (135-145); Total Bilirubin 0.3 mg/dl (0.2-1.3); Total Protein 7.3 g/dl (6.3-8.2); eGFR > 60.00
[2024-06-04 08:51] LABS: Glycohemoglobin (HgbA1c) 5.2 % (4.0-5.6)
[2024-06-11] VITALS (16 sets, daily range): BP systolic 50–144; BP diastolic 53–79; BMI 26.7
[2024-06-11] MEDS: ENTEREG 12 MG PO (06:38)
[2024-06-11] MEDS: TYLENOL 1000 MG PO (06:38)
[2024-06-11] MEDS: NEURONTIN 600 MG PO (06:39)
[2024-06-11] MEDS: HEPARIN 5000 UNITS SC (06:40)
[2024-06-11] MEDS: NORMOSOL-R/PLASMALYTE-A 1000 IV ×3 (06:49→21:44)
--- NOTE | 2024-06-11 10:45 | W.IMMPOSTOP ---
Surgical Immed Post Op Note
-
Primary Surgeon: Karlie Youssef MD
Assisting Surgeon: JAYSON Benavides
Pre-op Diagnosis: 1) colostomy 2) history of Hartmannn's resection for perforated sigmoid diverticulitis
Post-op Diagnosis: same
Procedure Performed: 1) robotic colostomy takedown 2) flexible sigmoidoscopy
Anesthesia Type: general plus local
Specimen / Cultures: colostomy
Estimated Blood Loss: 25 cc
Complications: no immediate
Operative Findings: minimal intraabdominal adhesions
#19 Warren in pelvis.
Sanon, stents, ureteral ICG by Dr. العلي of urology. R stent pulled at end of case.
Will send to med surg.
[2024-06-11 11:28] LABS: % Basophils 0.3 % (0-2); % Eosinophils 0.1 % (0-6); % Immature Granulocytes 0.4 % (0-0.5); % Lymphocytes 8.2 % (20.5-51.1); Absolute Lymphocytes 0.6 10^3/uL (1.2-3.4); Absolute Monocytes 0.1 10^3/uL (0.1-0.6); Absolute Neutrophils 6.3 10^3/uL (1.4-6.5); Hematocrit 34.5 % (37.0-47.0); Hemoglobin 11.1 g/dL (12.0-16.0); Mean Corp Hgb Conc. 32.2 g/dL (33.0-37.0); Mean Corpuscular Hgb 26.5 pg (27.0-31.0); Mean Corpuscular Volume 82.3 fL (81.0-99.0); Mean Platelet Volume 9.8 fL (7.4-10.4); Nucleated Red Blood Cells % 0 %; Platelet Count 228 10^3/uL (130-400); Red Blood Cell Count 4.19 10^6/uL (4.20-5.40); White Blood Cell Count 7.1 10^3/uL (4.8-10.8)
[2024-06-11 11:48] LABS: Blood Urea Nitrogen 11 mg/dl (7-17); Calcium 8.1 mg/dl (8.4-10.2); Carbon Dioxide 23 mmol/L (22-30); Chloride 100 mmol/L (98-107); Estimated Creatinine Clearance 62 ml/min; Glucose 176 mg/dl (70-99); Magnesium 2.6 mg/dl (1.6-2.3); Potassium 3.3 mmol/L (3.5-5.1); Sodium 138 mmol/L (135-145); eGFR > 60.00
[2024-06-11] MEDS: TYLENOL PO (12:43)
[2024-06-11] MEDS: TORADOL 10 MG IV ×2 (12:44→18:40)
[2024-06-11] MEDS: DILAUDID 0.5 MG IV ×2 (13:19→16:33)
[2024-06-11] MEDS: KCL 20 MEQ PO (16:31)
[2024-06-11] MEDS: TYLENOL 650 MG PO ×2 (16:31→19:59)
[2024-06-11] MEDS: SYNTHROID 25 MCG PO (21:48)
[2024-06-11] MEDS: ZOLOFT 50 MG PO (21:48)
--- NOTE | 2024-06-11 23:00 | PTCARENOTE ---
No urine output from penn catheter. bladder scanned for 475. House provide made aware. Flushed penn catheter couple times as per advise and had multiple small clots. urine draining well after. Dr Crystal made aware via TT.
[2024-06-12] MEDS: TYLENOL 650 MG PO ×7 (00:27→23:51)
[2024-06-12] MEDS: TORADOL 10 MG IV (00:28)
[2024-06-12] MEDS: DILAUDID 0.5 MG IV ×5 (01:05→21:24)
[2024-06-12 03:34] VITALS: BP 124/76
[2024-06-12] MEDS: TORADOL IV (04:41)
[2024-06-12 06:25] LABS: % Basophils 0.3 % (0-2); % Immature Granulocytes 0.4 % (0-0.5); % Lymphocytes 9.6 % (20.5-51.1); % Monocytes 10.9 % (1.7-9.3); % Neutrophils 78.8 % (42.2-75.2); Absolute Immature Granulocytes 0.1 10^3/uL (0-0.05); Absolute Lymphocytes 1.1 10^3/uL (1.2-3.4); Absolute Monocytes 1.2 10^3/uL (0.1-0.6); Absolute Neutrophils 8.9 10^3/uL (1.4-6.5); Hematocrit 28.7 % (37.0-47.0); Hemoglobin 9.4 g/dL (12.0-16.0); Mean Corp Hgb Conc. 32.8 g/dL (33.0-37.0); Mean Corpuscular Hgb 26.7 pg (27.0-31.0); Mean Corpuscular Volume 81.5 fL (81.0-99.0); Mean Platelet Volume 10.3 fL (7.4-10.4); Nucleated Red Blood Cells % 0 %; Platelet Count 227 10^3/uL (130-400); Red Blood Cell Count 3.52 10^6/uL (4.20-5.40); Red Cell Dist. Width 15.4 % (11.5-14.5); White Blood Cell Count 11.2 10^3/uL (4.8-10.8)
[2024-06-12 06:52] LABS: Blood Urea Nitrogen 9 mg/dl (7-17); Calcium 8.1 mg/dl (8.4-10.2); Carbon Dioxide 25 mmol/L (22-30); Chloride 100 mmol/L (98-107); Estimated Creatinine Clearance 62 ml/min; Glucose 101 mg/dl (70-99); Magnesium 2.5 mg/dl (1.6-2.3); Potassium 4.4 mmol/L (3.5-5.1); Sodium 134 mmol/L (135-145); eGFR > 60.00
[2024-06-12 07:10] VITALS: BP 122/54
[2024-06-12] MEDS: PROTONIX 40 MG PO (08:34)
[2024-06-12] MEDS: NORMOSOL-R/PLASMALYTE-A 1000 IV (08:34)
[2024-06-12] MEDS: ENTEREG 12 MG PO ×2 (08:34→21:18)
--- NOTE | 2024-06-12 09:40 | W.PN.CRS1 ---
Today's Communication / Plan
-
Repeat H&H at noon
Continue clears
DC Sanon
Assessment/Plan
-
POD#1 robotic colostomy takedown/flexible sigmoidoscopy
Vitals normal. WBC 11.2 (12.8)
-Continue clear liquids for today. Await bowel function.
-Continue KERRI drain until discharge.
-Hemoglobin 9.4 from 11.1. This is anemia likely due to dilution. Will repeat a hemoglobin at noon. Holding Lovenox for now. On a home dose of aspirin 325 mg daily, will restart once hemoglobin stabilizes.
-Discontinue Sanon
-Continue IV fluids until tolerating p.o.
-Hold Toradol given anemia.
-Out of bed as tolerated
-OR pathology pending
-Teds and SCDs in place for DVT prophylaxis
-Right OR stent removed at bedside
Subjective Data
Procedure
1) robotic colostomy takedown 2) flexible sigmoidoscopy
Subjective Data
Date of Service: June 12, 2024
Patient states she feels well. She denies nausea or vomiting. She has mild pain around her incisions. She has not had any gas or bowel movements yet.
Objective Data
-
Vital Signs
Temp Pulse Resp BP Pulse Ox
99.3 F 76 16 122/54 98
06/12/24 07:10 06/12/24 07:10 06/12/24 07:10 06/12/24 07:10 06/12/24 08:48
Intake & Output
06/11/24 06/12/24 06/13/24
06:59 06:59 06:59
Intake Total 0 / 2110 240 / 240
Output Total 1989 / 1989 565 / 565
Balance 120 / 120 -325 / -325
Intake:
Oral fluids 600 / 600
IV fluids (Total) 1510 / 1510 240 / 240
normosol 150 / 150
Output:
Drain Output (Total)
Right Abdomen Sergey-Curry
Urine, Sanon 1900 / 0 550 / 550
Lab Results
06/12/24 04:56
Physical Exam
-
General: No Acute Distress and AOx3
Abdomen: Soft, Non Distended, Non Tender and Other (KERRI drain light bloody)
Wound: Dressing in Place
[2024-06-12 11:54] LABS: Hematocrit 28.3 % (37.0-47.0); Hemoglobin 9.3 g/dL (12.0-16.0)
[2024-06-12 15:26] VITALS: BP 111/58; BP 98/80; PULSE 79
--- NOTE | 2024-06-12 15:29 | CM ---
Met with pt and her at bedside
Pt reports she lives with her in a 2 story home; 1 step to enter, 13 steps to 2nd fl. has 1/2 bath on FF
Independent , retired, drives
DME - ostomy supplies
SNF - no past hx
HH - [facility] in past - would like again if indicated
PCP - Evaristo Montez
Pharm - [facility]
Plan - anticipate home no needs vs w/VN when medically ready
[2024-06-12 15:44] VITALS: BP 97/57
[2024-06-12] MEDS: LOVENOX 40 MG SC (17:11)
[2024-06-12] MEDS: ZOLOFT 50 MG PO (21:18)
[2024-06-12] MEDS: SYNTHROID 25 MCG PO (21:18)
[2024-06-12 23:07] VITALS: BP 126/69
[2024-06-12] MEDS: PEPCID 40 MG PO (23:51)
[2024-06-13] MEDS: DILAUDID 0.5 MG IV ×2 (03:55→14:54)
[2024-06-13] MEDS: TYLENOL 650 MG PO ×6 (03:55→23:12)
[2024-06-13 06:00] VITALS: BMI 26.6
[2024-06-13 07:01] VITALS: BP 128/65
[2024-06-13 08:22] LABS: % Basophils 0.3 % (0-2); % Eosinophils 5.9 % (0-6); % Immature Granulocytes 0.3 % (0-0.5); % Lymphocytes 10.3 % (20.5-51.1); % Neutrophils 73.2 % (42.2-75.2); Absolute Eosinophils 0.5 10^3/uL (0-0.7); Absolute Lymphocytes 0.8 10^3/uL (1.2-3.4); Absolute Monocytes 0.8 10^3/uL (0.1-0.6); Absolute Neutrophils 5.7 10^3/uL (1.4-6.5); Hematocrit 33.3 % (37.0-47.0); Hemoglobin 10.7 g/dL (12.0-16.0); Mean Corp Hgb Conc. 32.1 g/dL (33.0-37.0); Mean Corpuscular Hgb 26.8 pg (27.0-31.0); Mean Corpuscular Volume 83.5 fL (81.0-99.0); Mean Platelet Volume 10.6 fL (7.4-10.4); Nucleated Red Blood Cells % 0 %; Platelet Count 237 10^3/uL (130-400); Red Blood Cell Count 3.99 10^6/uL (4.20-5.40); Red Cell Dist. Width 15.6 % (11.5-14.5); White Blood Cell Count 7.8 10^3/uL (4.8-10.8)
[2024-06-13 08:30] LABS: Blood Urea Nitrogen 8 mg/dl (7-17); Calcium 8.5 mg/dl (8.4-10.2); Carbon Dioxide 27 mmol/L (22-30); Chloride 102 mmol/L (98-107); Estimated Creatinine Clearance 62 ml/min; Glucose 96 mg/dl (70-99); Potassium 4.7 mmol/L (3.5-5.1); Sodium 136 mmol/L (135-145); eGFR > 60.00
[2024-06-13] MEDS: PROTONIX 40 MG PO (09:17)
[2024-06-13] MEDS: ENTEREG 12 MG PO ×2 (09:17→20:37)
--- NOTE | 2024-06-13 09:24 | W.PN.GS2 ---
Addendum entered and electronically signed by Roshan Cardenas MD 06/13/24 15:03:
I saw and examined the patient.
The [employer] Work's note was reviewed and I agree with the note.
Comment: Clinicaly well appearing, passing flatus, denies n/v, alice cld. exam approp. restart home asa. adv to fld
Original Note:
Today's Communication / Plan
-
FLD
Assessment / Plan
-
68 yo female with a h/o perforated diverticulitis s/p Nori's procedure presenting for ostomy reversal now POD #1 robotic colostomy takedown/flexible sigmoidoscopy
AFVSS
H/H stable, equilibrating post op
Leukocytosis resolved
+flatus, abd soft, nd
--Advance to FLD
--Continue off IVF
--Analgesics scheduled and prn
--Ok to resume home dosage of asa
--Continue EKRRI until discharge
--OOB/Ambulate
--C/W Lovenox sq/SCD's while in bed
Subjective Data
-
Date of Service: June 13, 2024
Patient seen and examined at bedside. Denies n/v. Passing some flatus now, no BM as of yet. Pain manageable. Voiding without difficulty.
Objective Data
-
Intake and Output
06/12/24 06/13/24 06/14/24
06:59 06:59 06:59
Intake Total 2109 / 0 1999
Output Total 1989 1610 / 1610 10 / 10
Balance 120 / 120 390 / 390 -10 / -10
Intake:
Oral fluids 600 / 600 960 / 960
IV fluids (Total) 1510 / 1510 1040 / 1040
normosol 150 / 150
Output:
Drain Output (Total) 90 / 90 60 / 60 10 / 10
Right Abdomen Sergey-Curry
Urine, Penn 1900 / 1900 1250 / 1250
Urine, Voided 300 / 300
Other:
Number of approximated MODERATE 3
amounts of urine
Vital Signs
Temp Pulse Resp BP Pulse Ox
98.4 F 67 16 128/65 96
06/13/24 07:01 06/13/24 07:01 06/13/24 07:01 06/13/24 07:01 06/13/24 07:01
Lab Results
06/13/24 06:25
06/13/24 06:25
Calcium 8.5 mg/dl (8.4-10.2) 06/13/24 06:25
Magnesium 2.5 mg/dl (1.6-2.3) H 06/12/24 04:56
Total Bilirubin 0.3 mg/dl (0.2-1.3) 06/03/24 13:35
AST 28 U/L (14-36) 06/03/24 13:35
ALT 23 U/L (0-35) 06/03/24 13:35
Alkaline Phosphatase 85 U/L (38-126) 06/03/24 13:35
Total Protein 7.3 g/dl (6.3-8.2) 06/03/24 13:35
Albumin 4.3 g/dl (3.5-5.0) 06/03/24 13:35
Physical Exam
-
NAD
ABD soft, nt, nd
Prior stoma site with intact edita/yudelka. Minimal serosang drainage on gauze dressing
Lap incisions intact
KERRI with SSF
Patient has a penn catheter: No
Patient has a central line: No
[2024-06-13] MEDS: ROXICODONE 5 MG PO ×3 (10:38→21:36)
[2024-06-13 16:24] VITALS: BP 119/64
[2024-06-13] MEDS: LOVENOX 40 MG SC (17:32)
[2024-06-13] MEDS: SYNTHROID 25 MCG PO (20:37)
[2024-06-13] MEDS: ASPIRIN ENTERIC COATED 325 MG PO (21:35)
[2024-06-13] MEDS: ZOLOFT 50 MG PO (21:35)
[2024-06-13] MEDS: PEPCID 40 MG PO (23:11)
[2024-06-13 23:15] VITALS: BP 135/69
[2024-06-14] MEDS: TYLENOL 650 MG PO ×6 (03:05→23:04)
[2024-06-14] MEDS: ROXICODONE 5 MG PO ×5 (03:05→20:44)
[2024-06-14 06:00] VITALS: BMI 27.2
[2024-06-14 06:22] LABS: Hematocrit 33.3 % (37.0-47.0); Hemoglobin 10.7 g/dL (12.0-16.0); Mean Corp Hgb Conc. 32.1 g/dL (33.0-37.0); Mean Corpuscular Hgb 26.8 pg (27.0-31.0); Mean Corpuscular Volume 83.3 fL (81.0-99.0); Mean Platelet Volume 10.5 fL (7.4-10.4); Platelet Count 249 10^3/uL (130-400); Red Cell Dist. Width 15.4 % (11.5-14.5); White Blood Cell Count 7.1 10^3/uL (4.8-10.8)
[2024-06-14 07:15] VITALS: BP 134/73
[2024-06-14] MEDS: PROTONIX 40 MG PO (08:34)
[2024-06-14] MEDS: ENTEREG 12 MG PO ×2 (08:34→20:28)
--- NOTE | 2024-06-14 14:21 | W.PN.GS2 ---
Addendum entered and electronically signed by Roshan Cardenas MD 06/14/24 14:32:
I saw and examined the patient.
The Orthotic Finish Grinding Technician's note was reviewed and I agree with the note.
Comment: Improving. Ashwini diet. Pain controlled. Pain mostly at old stoma site. Ambulating but not much. Exam approp. Adv to LRD.
Addendum entered and electronically signed by TORREY Laura 06/14/24 14:24:
Correction: patient is POD #3 robotic colostomy takedown
Original Note:
Today's Communication / Plan
-
Advance diet
Assessment / Plan
-
68 yo female with a h/o perforated diverticulitis s/p Nori's procedure presenting for ostomy reversal now POD #2 robotic colostomy takedown/flexible sigmoidoscopy
AFVSS
H/H stable
Leukocytosis resolved
+flatus/BM. abd soft, nd
--Advance to LRD
--Continue off IVF
--Analgesics scheduled and prn
--Continue KERRI until discharge. Will remove yudelka prior to dc as well
--OOB/Ambulate
--C/W Lovenox sq/SCD's while in bed
Subjective Data
-
Date of Service: June 14, 2024
Patient seen and examined at bedside with Dr. Cardenas. Denies n/v. Tolerating diet. Less lightheaded then yesterday but not ambulating much. Passing flatus and had a stool.
Objective Data
-
Intake and Output
06/13/24 06/14/24 06/15/24
06:59 06:59 06:59
Intake Total 1999 / 216
Output Total 1610 / 1610 40 / 40
Balance 390 / 390 2119
Intake:
Oral fluids 960 / 960 2160 / 2160
IV fluids (Total) 1040 / 1040
Output:
Drain Output (Total) 60 40 / 40
Right Abdomen Sergey-Curry 60 40 / 40
Urine, Penn 1250 / 1250
Urine, Voided 300 / 300
Other:
Number of approximated MODERATE 3 1
amounts of urine
Number of approximated LARGE 1
amounts of urine
How many times incontinent 2
MODERATE amount urine
Vital Signs
Temp Pulse Resp BP Pulse Ox
98.1 F 62 16 134/73 98
06/14/24 07:15 06/14/24 07:15 06/14/24 07:15 06/14/24 07:15 06/14/24 10:53
Lab Results
06/14/24 05:26
06/13/24 06:25
Calcium 8.5 mg/dl (8.4-10.2) 06/13/24 06:25
Magnesium 2.5 mg/dl (1.6-2.3) H 06/12/24 04:56
Total Bilirubin 0.3 mg/dl (0.2-1.3) 06/03/24 13:35
AST 28 U/L (14-36) 06/03/24 13:35
ALT 23 U/L (0-35) 06/03/24 13:35
Alkaline Phosphatase 85 U/L (38-126) 06/03/24 13:35
Total Protein 7.3 g/dl (6.3-8.2) 06/03/24 13:35
Albumin 4.3 g/dl (3.5-5.0) 06/03/24 13:35
Physical Exam
-
NAD
ABD soft, nt, nd
Prior stoma site with intact edita/yudelka. Minimal serosang drainage on gauze dressing
Lap incisions intact
KERRI with SSF
Patient has a penn catheter: No
Patient has a central line: No
[2024-06-14 15:57] VITALS: BP 116/78
[2024-06-14] MEDS: LOVENOX 40 MG SC (17:33)
[2024-06-14] MEDS: PEPCID 40 MG PO (22:25)
[2024-06-14] MEDS: SYNTHROID 25 MCG PO (22:26)
[2024-06-14] MEDS: ASPIRIN ENTERIC COATED 325 MG PO (22:26)
[2024-06-14] MEDS: ZOLOFT 50 MG PO (22:26)
[2024-06-14 23:19] VITALS: BP 129/62
[2024-06-15] MEDS: TYLENOL 650 MG PO ×3 (03:39→12:25)
[2024-06-15 06:00] VITALS: BMI 26.3
[2024-06-15 07:15] VITALS: BP 143/81
[2024-06-15] MEDS: PROTONIX 40 MG PO (08:27)
[2024-06-15] MEDS: ENTEREG 12 MG PO (08:27)
[2024-06-15] MEDS: ROXICODONE 5 MG PO ×2 (08:29→12:25)
--- NOTE | 2024-06-15 09:38 | W.PN.CRS1 ---
Today's Communication / Plan
-
possible d/c later this afternoon
Assessment/Plan
-
68 yo female with a h/o perforated diverticulitis s/p Nori's procedure presenting for ostomy reversal now POD #3 robotic colostomy takedown/flexible sigmoidoscopy
AFVSS
--Continue low residue diet
--Continue off IVF
--Analgesics scheduled and prn
--BECCA drain removed at bedside. Wound yudelka removed.
--OOB/Ambulate
--C/W Lovenox sq/SCD's while in bed
--Okay for discharge later today if tolerates low residue diet and is able to walk without feeling lightheaded. Will check in with patient this afternoon. Discharge instructions discussed with patient including medications, activity levels and
follow up. All questions addresssed.
Subjective Data
Procedure
1) robotic colostomy takedown 2) flexible sigmoidoscopy
Subjective Data
Date of Service: June 15, 2024
Patient states she feels 'a lot better'. She denies nausea or vomiting. She is having flatus and bowel movements. She was lightheaded yesterday while walking.
Objective Data
-
Vital Signs
Temp Pulse Resp BP Pulse Ox
98.5 F 65 16 143/81 98
06/15/24 07:15 06/15/24 07:15 06/15/24 07:15 06/15/24 07:15 06/15/24 07:15
Intake & Output
06/14/24 06/15/24 06/16/24
06:59 06:59 06:59
Intake Total 2159
Output Total 40 / 40 440 / 440
Balance 2119 1480 / 1480
Intake:
Oral fluids 2159
Output:
Drain Output (Total) 40 / 40 40 / 40
Right Abdomen Sergey-Curry
Urine, Voided 400 / 400
Other:
Number of approximated MODERATE 1 2
amounts of urine
Number of approximated LARGE 1
amounts of urine
How many times incontinent 2
MODERATE amount urine
Lab Results
06/14/24 05:26
06/13/24 06:25
Physical Exam
-
General: No Acute Distress and AOx3
Abdomen: Soft, Non Distended, Non Tender and Other (becca with serous output)
Skin: Warm and Dry
Incision: Clear, Dry, Intact
--- NOTE | 2024-06-15 12:46 | CM ---
Chart reviewed. Met with pt and at bedside
Poss d/c today/tomorrow
Requesting VN for wound management - Requesting [facility]
Given IMM
Plan - anticipate home with [facility] when medically ready
--- NOTE | 2024-06-15 13:40 | W.DS.TRANS ---
DC Summary - Resident Services Coordinator
-
Discharge Instructions:
Sleep Apnea Risk Low
Discharge Diagnosis/Procedures 1) robotic colostomy takedown 2) flexible
sigmoidoscopy
Diet Low Residue
Activity No strenuous activity
Additional Activity No lifting over 10lbs (gallon of milk)
Driving Restrictions No driving for 1 week
Bathing Restrictions OK to Shower
Wound Care Allow glue to naturally fall off. Do not pick at
incisions.
Instructions: Low-fiber diet
Stand-Alone Forms:
Changes to Home Medications: Yes
Discharge Medications:
DC Medications w/original date entered in [employer]
SELENIUM 1 tab PO DAILY Supplement 07/23/10
ascorbic acid (vitamin C) 500 mg tablet (Vitamin C) 500 mg PO DAILY Supplement 07/23/10
aspirin 325 mg tablet,delayed release 325 mg PO HS Blood Clot Prevention/Tx 07/23/10
biotin 1 mg tablet 1 mg PO DAILY Supplement 07/23/10
multivitamin with folic acid 400 mcg tablet (Tab-A-Jade) 1 tab PO DAILY Supplement 07/23/10
sertraline 50 mg tablet 50 mg PO HS Depression 07/23/10
omeprazole 40 mg capsule,delayed release 40 mg PO DAILY #20 caps 08/04/22
apple cider vinegar 300 mg tablet 300 mg PO DAILY Supplement 12/12/23
calcium carbonate (Calcium 600) 600 mg PO DAILY Supplement 12/12/23
coenzyme Q10 100 mg capsule (CoQ-10) 100 mg PO DAILY Supplement 12/12/23
famotidine 40 mg tablet 40 mg PO BID Gastrointestinal Issue 12/12/23
levothyroxine 25 mcg tablet 25 mcg PO HS Thyroid 12/12/23
omega 7-zbu-nas-fish oil 1,000 mg (120 mg-180 mg) capsule (Fish Oil) 1 cap PO DAILY Supplement 12/12/23
Elderberry 1,000 mg PO QPM 06/04/24
cinnamon bark 500 mg capsule (Cinnamon) 500 mg PO PRN PRN Surgary foods 06/04/24
docosahexaenoic acid 300 mg capsule (DHA Algal-900) 900 mg PO Daily 06/04/24
echinacea 450 mg PO PRN PRN Cold Symptoms 06/04/24
glucos 500 mg-chond 66.7 mg-msm 500 mg-hyalur 1.1 mg-eliel borate tablet (Move Free Plus MSM) 2 tab PO QPM 06/04/24
niacin 500 mg tablet 500 mg PO QPM 06/04/24
zinc acetate 50 mg (zinc) capsule 50 mg PO QPM 06/04/24
oxycodone 5 mg tablet 5 mg PO Q6H PRN Pain #20 tabs 06/15/24
Home Medication Changes
oxycodone 5 mg tablet 5 mg PO Q6H PRN Pain #20 tabs 06/15/24
Pending Results: No
--- NOTE | 2024-06-15 13:44 | VNURNOTE ---
Home Health Liaison met with patient and spouse at bedside to discuss [facility] nurse/therapy, visits, schedule and homebound status. Patient is agreeable and understands that visits at home will be 2-3 x per week to assess and teach medical management.
[facility] brochure provided with contact information. Patient is aware that [facility] will contact them for start of care in 1-2 days after discharge from .
[facility] referral completed in [facility].
[2024-06-15 14:12] VITALS: BP 148/81
== END 2024-06-15 14:49 | disposition home health service (06) | DRG 346 ==
LOC: 2 SOUTH 06:08
PROVIDERS: Physician Assistant; Registered Nurse; ADMITTING PHYSICIAN Surgery; FAMILY PHYSICIAN Family Medicine
PROC: 0DJD8ZZ Inspection of Lower Intestinal Tract, Via Natural or Artificial Opening Endoscopic (ICD-10-PCS; 2024-06-11)
PROC: 8E0W4CZ Robotic Assisted Procedure of Trunk Region, Percutaneous Endoscopic Approach (ICD-10-PCS; 2024-06-11)
PROC: 0DSM4ZZ Reposition Descending Colon, Percutaneous Endoscopic Approach (ICD-10-PCS; 2024-06-11)
DX: Z43.3 Encounter for attention to colostomy (principal); K21.9 Gastro-esophageal reflux disease without esophagitis; E03.9 Hypothyroidism, unspecified; I10 Essential (primary) hypertension; I34.1 Nonrheumatic mitral (valve) prolapse; Z79.890 Hormone replacement therapy; Z79.899 Other long term (current) drug therapy; Z87.19 Personal history of other diseases of the digestive system; Z86.711 Personal history of pulmonary embolism; Z88.1 Allergy status to other antibiotic agents
CPT/HCPCS: 88304; 36415; 80048; 80053; 83036; 83735; 85014; 85018; 85025; 85027; 85610; 85730; 86850; 86900; 86901; 93005; 97162; 97166; 97530; J1335

== ENCOUNTER → 2025-01-01 14:49 | Outpatient (REF) | payer OTHER, SELFPAY | LOC: HWRAD 14:49 | PROVIDERS: ATTENDING PHYSICIAN Surgery; FAMILY PHYSICIAN Family Medicine | DX: K43.2 Incisional hernia without obstruction or gangrene (principal) | CPT/HCPCS: 74176 ==

== ENCOUNTER 2025-02-12 06:21 | Day surgery (SDC) | payer OTHER, SELFPAY ==
[2025-01-29 14:00] VITALS: BMI 28.8
[2025-01-29 14:35] LABS: Hematocrit 33.8 % (37.0-47.0); Hemoglobin 10.6 g/dL (12.0-16.0); Mean Corp Hgb Conc. 31.4 g/dL (33.0-37.0); Mean Corpuscular Volume 79.7 fL (81.0-99.0); Platelet Count 254 10^3/uL (130-400); Red Cell Dist. Width 16.1 % (11.5-14.5)
[2025-01-29 15:28] LABS: Blood Urea Nitrogen 17 mg/dl (7-17); Calcium 9.7 mg/dl (8.4-10.2); Carbon Dioxide 26 mmol/L (22-30); Chloride 106 mmol/L (98-107); Estimated Creatinine Clearance 56 ml/min; Glucose 90 mg/dl (70-99); Potassium 5.4 mmol/L (3.5-5.1); Sodium 138 mmol/L (135-145); eGFR > 60.00
[2025-02-12] VITALS (10 sets, daily range): BP systolic 121–147; BP diastolic 61–85; BMI 28.8
[2025-02-12] MEDS: TYLENOL 1000 MG PO (10:42)
[2025-02-12] MEDS: NORMOSOL-R/PLASMALYTE-A 1000 IV (10:51)
--- NOTE | 2025-02-12 11:07 | HP.FOC2 ---
Focused History & Physical
Chief Complaint
HPI:
Chief Complaint: Left lower quadrant incisional hernia
HPI / Indication for Planned Procedure: Patient is a 69-year-old female recently seen in outpatient surgical evaluation secondary to left lower quadrant abdominal wall swelling in her old ostomy scar. She has previously undergone Nori for
perforated sigmoid diverticulitis in 2023 with subsequent reversal. She has had increasing swelling in the left lower quadrant and has discomfort in the region which is painful at times. Outpatient evaluation confirmed the presence of a large left
lower quadrant incisional hernia which was reducible while supine. CT imaging confirmed the presence of this hernia with a fascial defect approaching 5 cm. She presents today for scheduled operative correction.
Relevant Past Medical History: Other (Mitral valve prolapse, PVCs, hypertension, GERD, hypothyroidism, history of phlebitis)
Relevant Social History: Negative
Relevant Family History: Negative
Relevant Past Surgical History: Positive for (Nori procedure, reversal of her colostomy)
Review of Systems
Review of Pertinent Systems: All Systems Negative
Medication
See Medication form for detailed medications: Yes
Medication List (including Herbals & OTC):
ascorbic acid (vitamin C) 500 mg tablet (Vitamin C) 500 mg PO HS Supplement 07/23/10
aspirin 325 mg tablet,delayed release 325 mg PO HS Blood Clot Prevention/Tx 07/23/10
biotin 1 mg tablet 1 mg PO HS Supplement 07/23/10
multivitamin with folic acid 400 mcg tablet (Tab-A-Jade) 1 tab PO DAILY Supplement 07/23/10
sertraline 50 mg tablet 50 mg PO HS Depression 07/23/10
apple cider vinegar 300 mg tablet 300 mg PO HS Supplement 12/12/23
calcium carbonate (Calcium 600) 600 mg PO DAILY Supplement 12/12/23
coenzyme Q10 100 mg capsule (CoQ-10) 100 mg PO DAILY Supplement 12/12/23
famotidine 40 mg tablet 40 mg PO BID Gastrointestinal Issue 12/12/23
levothyroxine 25 mcg tablet 25 mcg PO HS Thyroid 12/12/23
omega 1-hwz-kqf-fish oil 1,000 mg (120 mg-180 mg) capsule (Fish Oil) 1 cap PO DAILY Supplement 12/12/23
Elderberry 1,000 mg PO QPM 06/04/24
cinnamon bark 500 mg capsule (Cinnamon) 500 mg PO PRN PRN Surgary foods 06/04/24
docosahexaenoic acid 300 mg capsule (DHA Algal-900) 900 mg PO Daily 06/04/24
glucos 500 mg-chond 66.7 mg-msm 500 mg-hyalur 1.1 mg-eliel borate tablet (Move Free Plus MSM) 2 tab PO QPM 06/04/24
niacin 500 mg tablet 500 mg PO QPM 06/04/24
zinc acetate 50 mg (zinc) capsule 50 mg PO QPM 06/04/24
echinacea 400 mg capsule 450 mg PO PRN PRN COLD SYMPTOMS 02/05/25
esomeprazole magnesium 40 mg capsule,delayed release 40 mg PO HS 02/05/25
selenium 200 mcg tablet 200 mcg PO HS 02/05/25
Medications Reviewed: Yes
Allergies and Reactions
Patient has Allergies: Yes
Noted Allergies and Reactions:
Allergy/AdvReac Type Severity Reaction Status Date / Time
erythromycin base Allergy burning Verified 02/12/25 10:35
stomach
latex (Latex) Allergy PRURITUS/ER Verified 02/12/25 10:35
YTHEMA
Pertinent Physical Exam
All Other Systems: Negative
Head/Neck: Normal
Lungs: Normal
Heart: Normal
Abdomen: Other (Left lower quadrant incisional hernia)
Extremities: Normal
Neurological: Normal
Diagnosis / Assessment
69-year-old female presenting for scheduled operative correction left lower quadrant incisional hernia
Plan / Procedure
Robotic assisted laparoscopic repair left lower quadrant incisional hernia with mesh
Anesthesia/Sedation to be done by Anesthesia Provider: Yes
--- NOTE | 2025-02-12 11:09 | W.SUR.PREOP ---
Pre-Operative Surgical Note
-
I have examined this patient prior to the performance of the scheduled procedure.
The patient's condition is unchanged from the time of the current History and
Physical and the patient is able to undergo the scheduled procedure.
--- NOTE | 2025-02-12 14:28 | W.IMMPOSTOP ---
Addendum entered and electronically signed by Russel Reynaga MD 02/15/25 09:47:
#[id number]
Original Note:
Surgical Immed Post Op Note
-
Primary Surgeon: Russel Reynaga MD
Assisting Surgeon: Gypsy Reynoso PA-C
Pre-op Diagnosis: Left lower quadrant incisional hernia
Post-op Diagnosis: Left lower quadrant incisional hernia; 5 cm
Procedure Performed: Robotic assisted laparoscopic repair incisional hernia with mesh; retromuscular underlay, Bard soft mesh 15 x 15 cm
Robotic assisted laparoscopic left transverses abdominis myofascial release
Anesthesia Type: GETA +0.25% Marcaine with epinephrine
Specimen / Cultures: None
Estimated Blood Loss: 12 mL
Complications: None immediate
Operative Findings: No abdominal wall adhesions encountered. Left lower quadrant incisional hernia at previous ostomy location towards the the lateral border of the rectus muscle and adjacent to the semilunar line. Mobilization of central
abdominal wall fat pad with subsequent left retrorectus exposure. Due to location of hernia adjacent to semilunar line a left-sided transversus abdominis myofascial release was required for retromuscular mesh positioning. Fascial defect closed
along the vertical orientation with 2 strands of 0 PDS STRATAFIX symmetric. Retromuscular underlay mesh repair; Bard soft 15 cm x 15 cm secured along the periphery and centrally with numerous interrupted 2-0 Vicryl fascial stitches. Mesh covered
midline laparotomy scar as well. Peritoneal flap closed with 2-0 Monocryl STRATAFIX spiral suture.
The assistance of Gypsy Reynoso PA-C was required due to the complexity of the procedure. During the procedure Gypsy Reynoso PA-C assisted with port placement, robotic instrumentation and suture material exchanges, and closure of the surgical incision
sites. I was present for the entirety of the operative procedure.
[2025-02-12] MEDS: NSS 1000 IV (17:21)
[2025-02-12] MEDS: REFRESH EYE DROPS (PF) 1 DROPS OPHTH (19:23)
[2025-02-12] MEDS: TORADOL 10 MG IV (19:30)
--- NOTE | 2025-02-12 20:48 | W.PN.UPDATE ---
Update Note
Progress Note Update
patient seen and evaluate for left eye pain and discomfort. Patient reports she woke up with Left eye discomfort post surgery. States she feels there is something in her eyes causing burning sensation, causing teary eye. Patient eye examined, no
scratch noted, although patient been rubbing on her eye, mild redness, upper eye lid red and dry with very mild swelling, sensitive to light, blurred vision and teary eye
Likely corneal abrasion, blepharitis, conjunctival infection
will order warm compress, refresh gel, and erythromycin ointment.
[2025-02-12] MEDS: ERYTHROMYCIN 0.5% OPHTHALMIC OINTMENT 1 APPLIC OPHTH (21:12)
[2025-02-12] MEDS: SYNTHROID 25 MCG PO (21:19)
[2025-02-12] MEDS: PEPCID 20 MG PO (21:19)
[2025-02-12] MEDS: HEPARIN 5000 UNITS SC (21:19)
[2025-02-12] MEDS: ASPIRIN 325 MG PO (21:19)
[2025-02-12] MEDS: ZOLOFT 50 MG PO (21:20)
[2025-02-13] MEDS: NSS 1000 IV ×2 (01:08→09:04)
--- NOTE | 2025-02-13 01:34 | PTCARENOTE ---
Pt was seen at bedside by House Proviser r/t left eye irritation, ordered Erythromycin ointment and gel refresh drops.
[2025-02-13 03:00] VITALS: BP 115/63
[2025-02-13 07:45] VITALS: BP 116/69
[2025-02-13 09:01] LABS: Hematocrit 27.8 % (37.0-47.0); Hemoglobin 8.7 g/dL (12.0-16.0); Mean Corp Hgb Conc. 31.3 g/dL (33.0-37.0); Mean Corpuscular Volume 78.5 fL (81.0-99.0); Platelet Count 227 10^3/uL (130-400); Red Cell Dist. Width 16.5 % (11.5-14.5)
[2025-02-13] MEDS: HEPARIN 5000 UNITS SC ×2 (09:03→20:14)
[2025-02-13] MEDS: ERYTHROMYCIN 0.5% OPHTHALMIC OINTMENT 1 APPLIC OPHTH ×4 (09:04→21:54)
[2025-02-13] MEDS: PROTONIX 40 MG PO (09:05)
[2025-02-13] MEDS: TYLENOL 650 MG PO ×4 (09:07→22:28)
[2025-02-13] MEDS: TORADOL 10 MG IV ×2 (09:08→18:34)
[2025-02-13 10:02] LABS: Blood Urea Nitrogen 10 mg/dl (7-17); Calcium 8.6 mg/dl (8.4-10.2); Carbon Dioxide 23 mmol/L (22-30); Chloride 111 mmol/L (98-107); Estimated Creatinine Clearance 62 ml/min; Glucose 89 mg/dl (70-99); Potassium 4.7 mmol/L (3.5-5.1); Sodium 139 mmol/L (135-145); eGFR > 60.00
[2025-02-13 11:35] VITALS: BP 118/59
--- NOTE | 2025-02-13 14:02 | W.PN.GS2 ---
Addendum entered and electronically signed by Roshan Cardenas MD 02/13/25 16:03:
I saw and examined the patient.
The Lab Intern's note was reviewed and I agree with the note.
Comment: Pain controlled, alice cld, no flatus yet, incisions cdi, belly soft and approp ttp, will adv diet to fulls, encouraged ambulation
Original Note:
Today's Communication / Plan
-
ADAT
Pain control
Assessment / Plan
-
69 yo female presenting for LLQ incisional hernia now POD #1 RAL repair incisional hernia with mesh; retromuscular underlay, Bard soft mesh 15 x 15 cm, left transverses abdominis myofascial release
AFVSS
Tolerating clears, not yet passing flatus
Stable labs
Plan:
Remove penn for voiding trial
Advance to FLD for now, regular diet once passing flatus/belching resolved
Analgesics as needed
OOB/Ambulate
D/C IVF once tolerating good PO intake
Lovenox for VTE ppx
Discharge once tolerating diet with good control, anticipate this will be tomorrow
Subjective Data
-
Date of Service: February 13, 2025
Pt seen and examined at bedside with Dr. Cardenas. Denies n/v. Not yet passing flatus. Belching. Pain present but manageable. Not yet ambulating much, worried she may become dizzy given h/o vasovagal episodes. No further c/o eye irritation.
Objective Data
-
Intake and Output
02/12/25 02/13/25 02/14/25
06:59 06:59 06:59
Intake Total 2440 / 2440
Output Total 200 / 200
Balance 2240 / 2240
Intake:
Oral fluids 1440 / 1440
IV fluids (Total) 1000 / 1000
Output:
Urine, Penn 200 / 200
Other:
Number of approximated MODERATE 1
amounts of urine
Number of approximated LARGE 2
amounts of urine
Vital Signs
Temp Pulse Resp BP Pulse Ox
98.0 F 59 16 118/59 98
02/13/25 11:35 02/13/25 11:35 02/13/25 11:35 02/13/25 11:35 02/13/25 11:35
Lab Results
02/13/25 07:32
02/13/25 07:32
Calcium 8.6 mg/dl (8.4-10.2) 02/13/25 07:32
Physical Exam
-
NAD
ABD soft, nd, expected tenderness
Incisions well approximated with intact glue, abdominal binder in place
Patient has a penn catheter: No
Patient has a central line: No
--- NOTE | 2025-02-13 14:24 | CM ---
CM following re: discharge planning.
Reviewed pt's chart, met with pt and pt's spouse at bedside.
pt is a 69 year old female, admitted with SDC status and primary dx of LLQ incisional hernia. POD #1 RAL repair incisional hernia with mesh; retromuscular underlay, Bard soft mesh 15 x 15 cm, left transverses abdominis myofascial release.
Pt reports she lives with 2SH, 2 steps to enter, has 2 supportive children. 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 No DME, VN or SNF history.
PCP: Evaristo Montez
Pharmacy: [facility]
D/C plan: home with anticipated no needs. to transport at discharge.
CM will follow with discharge plan updates as needed.
[2025-02-13 15:35] VITALS: BP 120/61
[2025-02-13] MEDS: NSS IV (18:36)
[2025-02-13 19:00] VITALS: BP 138/70
[2025-02-13] MEDS: REFRESH CELLUVISC GEL 1 DROPS OPHTH (20:14)
[2025-02-13] MEDS: PEPCID 20 MG PO (21:53)
[2025-02-13] MEDS: ASPIRIN 325 MG PO (21:53)
[2025-02-13] MEDS: ZOLOFT 50 MG PO (21:54)
[2025-02-13] MEDS: SYNTHROID 25 MCG PO (21:54)
[2025-02-13 23:06] VITALS: BP 133/88
[2025-02-14 03:00] VITALS: BP 131/68
[2025-02-14] MEDS: TORADOL 10 MG IV ×2 (03:06→12:27)
[2025-02-14 07:40] VITALS: BP 151/78
[2025-02-14 08:00] LABS: Hematocrit 30.3 % (37.0-47.0); Hemoglobin 9.4 g/dL (12.0-16.0); Mean Corp Hgb Conc. 31.0 g/dL (33.0-37.0); Mean Corpuscular Volume 78.1 fL (81.0-99.0); Platelet Count 247 10^3/uL (130-400); Red Cell Dist. Width 16.6 % (11.5-14.5)
[2025-02-14] MEDS: HEPARIN 5000 UNITS SC (08:21)
[2025-02-14] MEDS: PROTONIX 40 MG PO (08:21)
[2025-02-14] MEDS: ERYTHROMYCIN 0.5% OPHTHALMIC OINTMENT 1 APPLIC OPHTH ×2 (08:21→12:27)
[2025-02-14] MEDS: TYLENOL 650 MG PO (08:22)
[2025-02-14 08:23] LABS: Blood Urea Nitrogen 10 mg/dl (7-17); Calcium 8.8 mg/dl (8.4-10.2); Carbon Dioxide 24 mmol/L (22-30); Chloride 111 mmol/L (98-107); Estimated Creatinine Clearance 62 ml/min; Glucose 89 mg/dl (70-99); Potassium 4.4 mmol/L (3.5-5.1); Sodium 139 mmol/L (135-145); eGFR > 60.00
--- NOTE | 2025-02-14 12:18 | W.PN.GS2 ---
Today's Communication / Plan
-
dispo planning
Assessment / Plan
-
69 yo female presenting for LLQ incisional hernia now POD #2 RAL repair incisional hernia with mesh; retromuscular underlay, Bard soft mesh 15 x 15 cm, left transverses abdominis myofascial release
AFVSS
Tolerating diet with passage of stool/flatus
Stable labs, acute blood loss anemia with component of hemodilution noted on post op labs, stable today on recheck
voiding
Plan:
Regular diet
Analgesics as needed
OOB/Ambulate
Lovenox for VTE ppx
Discharge to home
Subjective Data
-
Date of Service: February 14, 2025
Pt seen and examined at bedside with Dr. Cardenas. Denies n/v. Tolerating diet. Passed a good size BM yesterday evening, passing gas today. No further belching. Pain present but well controlled.
Objective Data
-
Intake and Output
02/13/25 02/14/25 02/15/25
06:59 06:59 06:59
Intake Total 2440 / 2440 1200 / 1200
Output Total 200 / 200
Balance 2240 / 2240 1200 / 1200
Intake:
Oral fluids 1440 / 1440 1200 / 1200
IV fluids (Total) 1000 / 1000
Output:
Urine, Penn 200 / 200
Other:
Number of approximated MODERATE 3
amounts of urine
Number of approximated LARGE 2
amounts of urine
Vital Signs
Temp Pulse Resp BP Pulse Ox
98.3 F 58 16 151/78 98
02/14/25 07:40 02/14/25 07:40 02/14/25 07:40 02/14/25 07:40 02/14/25 07:40
Lab Results
02/14/25 06:43
02/14/25 06:43
Calcium 8.8 mg/dl (8.4-10.2) 02/14/25 06:43
Physical Exam
-
NAD
ABD soft, nd, expected tenderness
Incisions well approximated with intact glue, abdominal binder in place
Patient has a penn catheter: No
Patient has a central line: No
[2025-02-14 12:25] VITALS: BP 139/66
--- NOTE | 2025-02-14 13:15 | CM ---
CM following re: discharge planning.
Reviewed pt's chart, met with pt.
Discharge order noted. Pt is aware, expressed his agreement with discharge. Pt remains OBS status.
No after care VN needs identified.
D/c plan: home no needs. Spouse to transport.
== END 2025-02-14 14:22 | disposition home or self-care (01) ==
LOC: SDS 06:21
PROVIDERS: Registered Nurse; ATTENDING PHYSICIAN Surgery; FAMILY PHYSICIAN Family Medicine
DX: K43.2 Incisional hernia without obstruction or gangrene (principal)
CPT/HCPCS: 49593; 36415; 80048; 85027; 93005; C1781